=== PATIENT | female | born 1960 | race Caucasian/White ===

== ENCOUNTER 2017-10-02 08:46 | Inpatient (IN) ==
[2017-10-02] MEDS ORDERED: Piperacil/Tazo 3.375 GM Premix 50 ML IV.SIG ONE (08:56)
[2017-10-02] MEDS ORDERED: Lidocaine 1%/Epinephrine 1:100,000 Inj 20 ML Vial INFILTRATN ONE (08:56)
[2017-10-02] MEDS ORDERED: Vancomycin Inj 1 GM/200 ML PIGGYBACK IV.SIG ONE (08:56)
[2017-10-02] MEDS ORDERED: Vancomycin Inj 1,000 MG in Sodium Chlor 0.9% Inj 250 ML IV.SIG ONE ×2 (09:15→10:15)
[2017-10-02 09:35] LABS: Hemoglobin 11.7 gm/dL (11.6-15.3); Mean Corpuscular HGB Conc 33.4 % (32.0-36.0); Mean Corpuscular Hemoglobin 29.2 pg (27.0-34.0); Mean Corpuscular Volume 87.6 fL (80.0-100.0); Mean Platelet Volume 7.5 fL (7.0-11.0); Platelet Count 367 th/mm3 (150-450); White Blood Count 8.7 th/mm3 (4.0-11.0)
[2017-10-02 09:51] LABS: Calcium 8.5 mg/dL (8.5-10.1); Carbon Dioxide 21.9 meq/L (21.0-32.0)
[2017-10-02] MEDS ORDERED: Lidocaine 1%/Epinephrine 1:100,000 Inj 20 ML Vial ONE (09:51)
[2017-10-02 10:27] LABS: Eosinophils 1 % (0-4); Lymphocytes 8 % (9-44); Monocytes 5 % (0-8); Platelet Estimate Normal (Normal); Platelet Morphology Normal (Normal); Toxic Granulation 1+
[2017-10-02 10:28] LABS: Toxic Vacuolation Present
[2017-10-02] MEDS ORDERED: Acetaminophen 325 MG Tablet PO PRN (11:00)
[2017-10-02] MEDS ORDERED: Vancomycin Consult Pharmacy OTHER ONE (11:09)
--- NOTE | 2017-10-02 11:22 | P.HP ---
<Irais Pollard W - Last Filed: 10/02/17 14:09> History of Present Illness Primary Care Physician: Shazia Elkins MD Chief Complaint: Draining wound left arm History of Present Illness: This is a 57-year-old female patient with a past medical history which includes anxiety, bipolar, fibromyalgia, hyperlipidemia, lupus, obesity and overactive bladder. Patient presents to the emergency department for a draining abscess on her arm. Patient reports that she first noticed a blister on the medial aspect of her upper left arm yesterday during the day then last night the area started draining and saturated her clothes. Patient denies pain to the area. Patient also reports that she removed a hot casserole from her oven about 1 week ago causing burning to bilateral fingers tips. Patient denies fevers, chills, N/V/D/C, SOB or chest pain. Emergency department today bedside I&D and started patient on vancomycin and Zosyn. Cultures obtained and pending. 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 - Medical History Medical History: Medical History (Last Updated 10/02/17 @ 08:57 by Michelle Pino) Bipolar depression History of shingles Hyperlipidemia Lupus - Surgical History Surgical History: Surgical History (Last Updated 10/02/17 @ 08:57 by Michelle Pino) Hx of cholecystectomy Hx of tonsillectomy - Tobacco History Smoking Status: Former smoker - Alcohol History How Often Do You Have a Drink Containing Alcohol: Never - Substance Use History Substance History: No History of Abuse - Travel History Recent Travel in the [place] Within the Last 8 Weeks: No Recent Travel Out of the Country Within the Last 8 Weeks: No - Immunization History Tetanus Immunization: Unsure Hx Influenza Vaccine This Season: No Medications and Allergies Allergies Allergy/AdvReac Type Severity Reaction Status Date / Time hydrocodone Allergy Severe Hives Verified 10/02/17 08:59 latex Allergy Severe Hives Verified 10/02/17 09:13 Home Medications Medication Instructions Recorded Confirmed Type Lidoderm 700 mg TRANSDERMAL DAILY PRN 10/02/17 10/02/17 History alprazolam [Xanax] 0.5 mg PO BID PRN 10/02/17 10/02/17 History aripiprazole 20 mg PO DAILY 10/02/17 10/02/17 History aspirin 81 mg PO DAILY 10/02/17 10/02/17 History cholecalciferol (vitamin D3) unit PO DAILY 10/02/17 History [Vitamin D3] cyclobenzaprine 10 mg PO BID PRN 10/02/17 10/02/17 History diclofenac sodium 75 mg PO DAILY 10/02/17 10/02/17 History fenofibrate 145 mg PO DAILY 10/02/17 10/02/17 History furosemide 20 mg PO BID 10/02/17 10/02/17 History gabapentin 100 mg PO TID 10/02/17 10/02/17 History hydroxychloroquine 200 mg PO DAILY 10/02/17 10/02/17 History mirtazapine 30 mg PO DAILY 10/02/17 10/02/17 History rosuvastatin 10 mg PO DAILY 10/02/17 10/02/17 History temazepam 30 mg PO HS 10/02/17 10/02/17 History tramadol 50 mg PO BID 10/02/17 10/02/17 History valacyclovir [Valtrex] 1,000 mg PO TID 10/02/17 10/02/17 History sertraline [Zoloft] 100 mg PO DAILY 10/05/17 10/05/17 History Active Medications: Active Medications Acetaminophen (Tylenol) 650 mg PO Q4H PRN PRN Reason: Temp > 100.4 Al Hydroxide/Mg Hydroxide (Milk Of Magncady Liq) 30 ml PO Q12H PRN PRN Reason: Mild Constipation Vancomycin HCl 1,000 mg/ (Sodium Chloride) 250 mls @ 200 mls/hr IV.SIG ONCE ONE Stop: 10/02/17 11:29 Last Admin: 10/02/17 10:27 Dose: 200 mls/hr Ondansetron HCl (Zofran Inj) 4 mg IV.PUSH Q6H PRN PRN Reason: NAUSEA OR VOMITING Senna/Docusate Sodium (Nano-Colace) 1 tab PO BID SARA Temazepam (Restoril) 15 mg PO HS PRN PRN Reason: INSOMNIA Exam Vital signs: Vital Signs 10/02/17 08:54 10/02/17 08:58 Temperature 98.7 F Pulse Rate 104 H 97 H Respiratory Rate 18 20 Blood Pressure 133/79 144/70 H Pulse Oximetry 95 96 Intake & Output 10/01/17 10/02/17 10/02/17 18:59 06:59 18:59 Intake Total 50 / 50 Balance 50 / 50 Weight 108.862 kg Intake: IV 50 / 50 Zosyn 3.375 GM Premix 50 ML @ 50 / 50 100 mls/hr IV.SIG ONCE ONE Rx#: [id number] Narrative: GENERAL: This is a well-nourished, well-developed patient, in no apparent distress. SKIN: healing crusted areas bilateral finger tips, medial aspect left upper arm open drain wound with packing present, erythema and edema also noted to left upper arm CARDIOVASCULAR: Regular rate and rhythm RESPIRATORY: Clear to auscultation. Breath sounds equal bilaterally. GASTROINTESTINAL: Abdomen soft, non-tender, nondistended. Normal active bowel sounds MUSCULOSKELETAL: Extremities without clubbing, cyanosis, or edema. NEURO: Alert & Oriented x4 to person, place, time, situation. Moves all ext x4 Results - Labs CBC & Chem 7: 10/02/17 09:10 10/02/17 09:10 Labs: Laboratory Results - last 24 hr 10/02/17 10/02/17 09:10 09:10 WBC 8.7 RBC 4.00 Hgb 11.7 Hct 35.0 MCV 87.6 MCH 29.2 MCHC 33.4 RDW 14.0 Plt Count 367 MPV 7.5 Prelim Diff (Auto) Manual diff required WBC Differential Manual diff final Seg Neuts % (Manual) 78 H Band Neuts % (Manual) 8 H Lymphocytes % (Manual) 8 L Monocytes % (Manual) 5 Eosinophils % (Manual) 1 Abs Neuts (Manual) 7.5 Differential Comment . Toxic Granulation 1+ H Toxic Vacuolation Present H Platelet Estimate Normal Platelet Morphology Normal Sodium 129 L Potassium 3.0 L Chloride 91 L Carbon Dioxide 21.9 Anion Gap 16 H BUN 14 Creatinine 0.84 Estimated GFR 70 L Random Glucose 112 H Calcium 8.5 Caprini VTE Risk Assessment Caprini VTE Risk Assessment: No/Low Risk (score <= 1) Caprini Risk Assessment Model: Point Value = 1 Point Value = 2 Point Value = 3 Point Value = 5 Age 41-60 Minor surgery BMI > 25 kg/m2 Swollen legs Varicose veins or History of unexplained or recurrent spontaneous Oral contraceptives or hormone replacement Sepsis (< 1 month) Serious lung disease, including pneumonia (< 1 month) Abnormal pulmonary function Acute myocardial infarction Congestive heart failure (< 1 month) History of inflammatory bowel disease Medical patient at bed rest Age 61-74 Arthroscopic surgery Major open surgery (> 45 min) Laparoscopic surgery (> 45 min) Malignancy Confined to bed (> 72 hours) Immobilizing plaster cast Central venous access Age >= 75 History of VTE Family history of VTE Factor V Leiden Prothrombin [id number] Lupus anticoagulant Anticardiolipin antibodies Elevated serum homocysteine Heparin-induced thrombocytopenia Other congenital or acquired thrombophilia Stroke (< 1 month) Elective arthroplasty Hip, pelvis, or leg fracture Acute spinal cord injury (< 1 month) Prophylaxis Regimen: Total Risk Factor Score Risk Level Prophylaxis Regimen 0-1 Low Early ambulation 2 Moderate Order ONE of the following: *Sequential Compression Device (SCD) *Heparin 5000 units SQ BID 3-4 Higher Order ONE of the following medications: *Heparin 5000 units SQ TID *Enoxaparin/Lovenox 40 mg SQ daily (WT < 150 kg, CrCl > 30 mL/min) *Enoxaparin/Lovenox 30 mg SQ daily (WT < 150 kg, CrCl > 10-29 mL/min) *Enoxaparin/Lovenox 30 mg SQ BID (WT < 150 kg, CrCl > 30 mL/min) AND/OR *Sequential Compression Device (SCD) 5 or more Highest Order ONE of the following medications: *Heparin 5000 units SQ TID (Preferred with Epidurals) *Enoxaparin/Lovenox 40 mg SQ daily (WT < 150 kg, CrCl > 30 mL/min) *Enoxaparin/Lovenox 30 mg SQ daily (WT < 150 kg, CrCl > 10-29 mL/min) *Enoxaparin/Lovenox 30 mg SQ BID (WT < 150 kg, CrCl > 30 mL/min) AND *Sequential Compression Device (SCD) Assessment and Plan - Assessment (1) Abscess of left arm Code(s): L02.414 - Cutaneous abscess of left upper limb Status: Acute Plan: This is a 57-year-old female patient with a past medical history which includes anxiety, bipolar, fibromyalgia, hyperlipidemia, lupus, obesity and overactive bladder. Patient presents to the emergency department for a draining abscess on her arm. Patient reports that she first noticed a blister on the medial aspect of her upper left arm yesterday during the day then last night the area started draining and saturated her clothes. Patient denies pain to the area. Patient also reports that she removed a hot casserole from her oven about 1 week ago causing burning to bilateral fingers tips. Patient denies fevers, chills, N/V/D/C, SOB or chest pain. Emergency department today bedside I&D and started patient on vancomycin and Zosyn. Cultures obtained and pending. Abscess left upper arm Patient presents to the emergency department for a draining abscess on her arm. Patient reports that she first noticed a blister on the medial aspect of her upper left arm yesterday during the day then last night the area started draining and saturated her clothes. Emergency department today bedside I&D and started patient on vancomycin and Zosyn Continue VAnco with pharmacy to dose and continue Zosyn Blood Cultures obtained and pending Wound culture obtained and pending Consult to General surgery, Dr. Betts discussed the case with Michael Hightower consult to wound care Healing manzo bilateral fingers she removed a hot casserole from her oven about 1 week ago causing burning to bilateral fingers tips. Silvadene cream BID consult to wound care Hyponatremia on admission patient's Na was 129 likely related to poor PO intake IVF recheck in AM Hypokalemia potassium on admission 3.0 mag 1.8 replace K recheck in AM Anxiety Bipolar Continue patient's home alprazolam as needed, aripiprazole and mirtazapine Fibromyalgia Lupus continue patient's home gabapentin Hyperlipidemia Continue patient's home fenofibrate and rosuvastatin DVT prophylaxis with SCDs - Plan This is a 57-year-old female patient with a past medical history which includes anxiety, bipolar, fibromyalgia, hyperlipidemia, lupus, obesity and overactive bladder. Patient presents to the emergency department for a draining abscess on her arm. Abscess left arm Emergency department today bedside I&D and started patient on vancomycin and Zosyn Blood cultures and wound culture obtained and pending We will continue vancomycin with pharmacy to dose as well as Zosyn Consult placed to general surgery Hyponatremia sodium on admission 129 Patient likely not eating and drinking well We will start IV fluids normal saline with 20 MEQ KCl at 84 cc an hour Recheck BMP in a.m. Hypokalemia Patient's potassium on admission three-point Replace with 20 MEQ of KCl PO IV fluids with KCl Recheck BMP in a.m. Overactive bladder Continue patients on oxybutynin 5 mg 1 tablet p.o. twice a day May need to hold if hyponatremia persists Bipolar Anxiety Continue patient's home Abilify 20 mg p.o. daily and alprazolam 0.5 mg 1 tablet p.o. twice a day Hyperlipidemia Continue patient's home fenofibrate and Rosuvastatin Fibromyalgia Continue patient's home gabapentin 100 mg 1 tablet p.o. 3 times a day DVT prophylaxis with SCDs <Giovany Betts - Last Filed: 10/06/17 12:42> History of Present Illness Primary Care Physician: Shazia Elkins MD - Diagnosis (1) Abscess of left arm Inpatient Certification: I certify that the inpatient services were ordered in accordance with Medicare regulations governing the order. This includes certification that hospital inpatient services are reasonable and necessary and in the case of services not specified as inpatient-only under 42 CFR 419.22(n), that they are appropriately provided as inpatient services in accordance to with the 2-midnight benchmark under 43 CFR 412.3(e) [facility] - Medical History Medical History: Medical History (Last Updated 10/02/17 @ 08:57 by Michelle Pino) Bipolar depression History of shingles Hyperlipidemia Lupus - Surgical History Surgical History: Surgical History (Last Updated 10/02/17 @ 08:57 by Michelle Pino) Hx of cholecystectomy Hx of tonsillectomy Medications and Allergies Active Medications: Active Medications Acetaminophen (Tylenol) 650 mg PO Q4H PRN PRN Reason: Temp > 100.4 Al Hydroxide/Mg Hydroxide (Milk Of Magnesia Liq) 30 ml PO Q12H PRN PRN Reason: Mild Constipation Alprazolam (Xanax) 0.5 mg PO BID PRN PRN Reason: Anxiety Aripiprazole (Abilify) 20 mg PO DAILY [facility] Last Admin: 10/06/17 08:43 Dose: 20 mg Atorvastatin Calcium (Lipitor) 20 mg PO DAILY [facility] Last Admin: 10/06/17 08:44 Dose: 20 mg Cyclobenzaprine HCl (Flexeril) 10 mg PO BID PRN PRN Reason: pain Last Admin: 10/03/17 12:49 Dose: 10 mg Fenofibrate (Tricor) 145 mg PO DAILY [facility] Last Admin: 10/06/17 08:42 Dose: 145 mg Gabapentin (Neurontin) 100 mg PO TID [facility] Last Admin: 10/06/17 08:43 Dose: 100 mg Hydroxychloroquine Sulfate (Plaquenil) 200 mg PO DAILY [facility] Last Admin: 10/06/17 08:44 Dose: 200 mg Clindamycin/Sodium Chloride (Cleocin 900 Mg/Ns Premix) 900 mg in 50 mls @ 100 mls/hr IV.SIG Q8H [facility] Last Infusion: 10/06/17 05:37 Dose: Infused Mirtazapine (Remeron) 15 mg PO DAILY [facility] Last Admin: 10/06/17 08:43 Dose: 15 mg Morphine Sulfate (Morphine Inj) 4 mg IV.PUSH DAILY PRN PRN Reason: dressing changes Ondansetron HCl (Zofran Inj) 4 mg IV.PUSH Q6H PRN PRN Reason: NAUSEA OR VOMITING Sertraline HCl (Zoloft) 100 mg PO DAILY [facility] Last Admin: 10/06/17 08:43 Dose: 100 mg Silver Sulfadiazine (Silvadene 1% Cream (50 Gm)) 1 applicatio TOPICAL BID [facility] Last Admin: 10/06/17 08:44 Dose: 1 applicatio Sodium Chloride (Ns Flush) 10 ml IV.FLUSH UNSCH PRN PRN Reason: PER SHIFT Temazepam (Restoril) 30 mg PO HS [facility] Last Admin: 10/05/17 20:28 Dose: 30 mg Tramadol HCl (Ultram) 50 mg PO Q6H PRN PRN Reason: pain 1-10. Exam Vital signs: Vital Signs 10/05/17 15:37 10/05/17 16:30 10/05/17 17:05 Temperature 98.2 F Pulse Rate 88 85 Respiratory Rate 18 20 3 L Blood Pressure 129/85 131/87 Pulse Oximetry 98 96 10/05/17 18:00 10/05/17 20:00 10/06/17 00:00 Temperature 97.6 F 97.8 F 97.7 F Pulse Rate 81 95 H 97 H Respiratory Rate 17 18 18 Blood Pressure 144/71 H 150/75 H 132/68 Pulse Oximetry 95 98 98 10/06/17 04:00 10/06/17 08:00 Temperature 97.7 F 97.4 F L Pulse Rate 96 H 89 Respiratory Rate 18 18 Blood Pressure 136/74 142/85 H Pulse Oximetry 97 97 Intake & Output 10/05/17 10/06/17 10/06/17 18:59 06:59 18:59 Intake Total 1525 / 1525 580 / 580 Balance 1525 / 1525 580 / 580 Weight 106.8 kg 108.5 kg Intake: IV 565 / 565 100 / 100 Cleocin 900 mg/NS Premix 900 mg 50 / 50 100 / 100 In 50 ml @ 100 mls/hr IV.SIG Q8H [facility] Rx#:[id number] Oral 960 / 960 480 / 480 Other: # Voids 5 1 Date of Last Bowel Movement 10/05/17 10/05/17 # Bowel Movements 1 0 Results - Labs CBC & Chem 7: 10/05/17 05:45 10/05/17 05:45 Labs: Laboratory Results - last 24 hr 10/06/17 06:32 PT 10.9 INR 1.1 - Imaging Impressions Abscess Drainage Ultrasound 10/05/17 15:48 CONCLUSION: 1. Uncomplicated abscess drainage. Caprini VTE Risk Assessment Caprini Risk Assessment Model: Point Value = 1 Point Value = 2 Point Value = 3 Point Value = 5 Age 41-60 Minor surgery BMI > 25 kg/m2 Swollen legs Varicose veins or History of unexplained or recurrent spontaneous Oral contraceptives or hormone replacement Sepsis (< 1 month) Serious lung disease, including pneumonia (< 1 month) Abnormal pulmonary function Acute myocardial infarction Congestive heart failure (< 1 month) History of inflammatory bowel disease Medical patient at bed rest Age 61-74 Arthroscopic surgery Major open surgery (> 45 min) Laparoscopic surgery (> 45 min) Malignancy Confined to bed (> 72 hours) Immobilizing plaster cast Central venous access Age >= 75 History of VTE Family history of VTE Factor V Leiden Prothrombin [id number] Lupus anticoagulant Anticardiolipin antibodies Elevated serum homocysteine Heparin-induced thrombocytopenia Other congenital or acquired thrombophilia Stroke (< 1 month) Elective arthroplasty Hip, pelvis, or leg fracture Acute spinal cord injury (< 1 month) Prophylaxis Regimen: Total Risk Factor Score Risk Level Prophylaxis Regimen 0-1 Low Early ambulation 2 Moderate Order ONE of the following: *Sequential Compression Device (SCD) *Heparin 5000 units SQ BID 3-4 Higher Order ONE of the following medications: *Heparin 5000 units SQ TID *Enoxaparin/Lovenox 40 mg SQ daily (WT < 150 kg, CrCl > 30 mL/min) *Enoxaparin/Lovenox 30 mg SQ daily (WT < 150 kg, CrCl > 10-29 mL/min) *Enoxaparin/Lovenox 30 mg SQ BID (WT < 150 kg, CrCl > 30 mL/min) AND/OR *Sequential Compression Device (SCD) 5 or more Highest Order ONE of the following medications: *Heparin 5000 units SQ TID (Preferred with Epidurals) *Enoxaparin/Lovenox 40 mg SQ daily (WT < 150 kg, CrCl > 30 mL/min) *Enoxaparin/Lovenox 30 mg SQ daily (WT < 150 kg, CrCl > 10-29 mL/min) *Enoxaparin/Lovenox 30 mg SQ BID (WT < 150 kg, CrCl > 30 mL/min) AND *Sequential Compression Device (SCD) Assessment and Plan - Assessment (1) Abscess of left arm Code(s): L02.414 - Cutaneous abscess of left upper limb Status: Acute - Attending Attestation Patient examined. Assessment and plan formulated with Irais BEEBE I agree with the above.
--- NOTE | 2017-10-02 11:57 | XR ---
EXAM DATE: 10/02/2017 11:51 AM EDT AGE/SEX: 57 years / Female INDICATIONS: Cough. Patient complains of no energy, fatigue. Patient states she has shingles. CLINICAL DATA: This is the patient's initial encounter. Patient reports that signs and symptoms have been present for 1 day and indicates a pain score of 6/10. MEDICAL/SURGICAL HISTORY: Lupus. None. COMPARISON: No prior exams available for comparison. FINDINGS: Mild basilar atelectasis. Mild elevation right hemidiaphragm. Heart size within normal limits. No pne umothorax. CONCLUSION: Mild basilar atelectasis. No effusion or pneumothorax. Electronically signed by: Roger Benavides MD 10/02/2017 11:56 AM EDT
[2017-10-02] MEDS ORDERED: ALPRAZolam 0.5 MG Tablet PO PRN (13:17)
[2017-10-02] MEDS: Piperacil/Tazo 3.375 GM Premix 50 ML IV.SIG SCH ×2 (15:15→23:12)
--- NOTE | 2017-10-02 15:47 | ED ---
HPI General Chief complaint: Wound/Laceration Stated complaint: Medical Time Seen by Provider: 10/02/17 08:48 History of Present Illness HPI narrative: This is a 57-year-old female with a history of lupus, bipolar disorder, presents today with complaints of left upper arm redness and draining pus. Patient states that it started a few days ago. She states that she has been exposed to a nephew who has MRSA. She denies any fevers, chills. She reports increasing pain and redness and the newly draining lesion in her left upper inner arm. There are no other complaints at time of my examination. Onset (ago): day(s) Location: left and upper extremity Radiation: non-radiation Severity: moderate Severity scale (1-10): 8 Quality: sharp and constant Pain Consistency: constant Relieving factors: none Exacerbating factors: none Treatments prior to arrival: none Related Data Home Medications Medication Instructions Recorded Confirmed Lidoderm 700 mg TRANSDERMAL DAILY PRN 10/02/17 10/02/17 alprazolam [Xanax] 0.5 mg PO BID PRN 10/02/17 10/02/17 aripiprazole 20 mg PO DAILY 10/02/17 10/02/17 aspirin 81 mg PO DAILY 10/02/17 10/02/17 cholecalciferol (vitamin D3) unit PO DAILY 10/02/17 [Vitamin D3] cyclobenzaprine 10 mg PO BID PRN 10/02/17 10/02/17 diclofenac sodium 75 mg PO DAILY 10/02/17 10/02/17 fenofibrate 145 mg PO DAILY 10/02/17 10/02/17 furosemide 20 mg PO BID 10/02/17 10/02/17 gabapentin 100 mg PO TID 10/02/17 10/02/17 hydroxychloroquine 200 mg PO DAILY 10/02/17 10/02/17 mirtazapine 30 mg PO DAILY 10/02/17 10/02/17 rosuvastatin 10 mg PO DAILY 10/02/17 10/02/17 temazepam 30 mg PO HS 10/02/17 10/02/17 tramadol 50 mg PO BID 10/02/17 10/02/17 valacyclovir [Valtrex] 1,000 mg PO TID 10/02/17 10/02/17 Allergies Allergy/AdvReac Type Severity Reaction Status Date / Time hydrocodone Allergy Severe Hives Verified 10/02/17 08:59 latex Allergy Severe Hives Verified 10/02/17 09:13 Review of Systems Constitutional Denies chills and Denies fever(s) Eyes Reports system reviewed and no additional complaints, except as docu ENT Reports system reviewed and no additional complaints, except as docu Cardiovascular Reports system reviewed and no additional complaints, except as docu, Denies chest pain and Denies dyspnea Respiratory Denies cough and Denies dyspnea Gastrointestinal Denies nausea and Denies vomiting Genitourinary Reports system reviewed and no additional complaints, except as docu Musculoskeletal Denies back pain and Denies muscle weakness Integumentary/Breasts Reports lesions (Draining lesion under left arm) and Reports erythema (Left upper inner arm) Neurologic Reports system reviewed and no additional complaints, except as docu Endocrine Denies polydipsia and Denies polyuria PMFSH Social History Social History Substance History: No History of Abuse Second Hand Smoke Exposure: No Smoking Status: Former smoker How Often Do You Have a Drink Containing Alcohol: Never Recent Travel in [facility] within the Last 8 Weeks: No Recent Out of Country Travel within the Last 8 Weeks: No Immunization History Tetanus Immunization: Unsure Hx Influenza Vaccine This Season: No Exam Narrative Exam Narrative: GENERAL: Well-developed well-nourished female in no acute respiratory distress. SKIN: Focused skin assessment warm/dry. There is a draining abscess under her left inner arm. HEAD: Atraumatic. Normocephalic. EYES: No scleral icterus. No injection or drainage. ENT: No nasal bleeding or discharge. Mucous membranes pink and moist. NECK: Trachea midline. Supple. CARDIOVASCULAR: Sinus tachycardia rate of 101. No murmur appreciated. RESPIRATORY: No accessory muscle use. Clear to auscultation. Breath sounds equal bilaterally. GASTROINTESTINAL: Abdomen soft, non-tender, nondistended. Hepatic and splenic margins not palpable. MUSCULOSKELETAL: No obvious deformities. No clubbing. No cyanosis. No edema. NEUROLOGICAL: Awake and alert. No obvious cranial nerve deficits. Motor grossly within normal limits. Normal speech. PSYCHIATRIC: Appropriate mood and affect; insight and judgment normal. Procedures Abscess I/D Site: upper extremity Side (if applicable): left Sedation/analgesia: none Anesthetic used: lidocaine 1% Technique: incised with #11 blade Amount of fluid expressed (mL): 3 Irrigation: Yes Packing used?: iodoform Complications: pain Course Initial Documented Vital Signs Temperature 98.7 F 10/02/17 08:54 Pulse Rate 104 H 10/02/17 08:54 Respiratory Rate 18 10/02/17 08:54 Blood Pressure 133/79 10/02/17 08:54 Pulse Oximetry 95 10/02/17 08:54 Last Documented Vital Signs Temperature 98.7 F 10/02/17 08:54 Pulse Rate 67 10/02/17 15:00 Respiratory Rate 16 10/02/17 15:00 Blood Pressure 131/76 10/02/17 15:00 Pulse Oximetry 95 10/02/17 15:00 Medical Decision Making MDM Narrative Medical decision making narrative: 57-year-old female with a history of lupus, presents here today with complaints of left axillary cellulitis and drainage. Patient denies any fevers, chills. She has a large indurated area with woody edema. She has been started on Zosyn and vancomycin. Case was discussed with the [facility], who agrees with the above admission. Under direct supervision of this physician, Noel Vizcaino, medical student 4 perform the incision and drainage. The patient tolerated the procedure well and there were no complications. Patient is also noted to have hyponatremia as well as hypokalemia. She will be a full admit. Medical Screen Exam Complete: Yes Emergency Medical Condition: Yes Lab Data Result diagrams: 10/02/17 09:10 10/02/17 09:10 Lab Results 10/02/17 10/02/17 10/02/17 Range/Units 09:10 09:10 09:10 WBC 8.7 (4.0-11.0) th/mm3 RBC 4.00 (4.00-5.30) mil/mm3 Hgb 11.7 (11.6-15.3) gm/dL Hct 35.0 (35.0-46.0) % MCV 87.6 (80.0-100.0) fL MCH 29.2 (27.0-34.0) pg MCHC 33.4 (32.0-36.0) % RDW 14.0 (11.6-17.2) % Plt Count 367 (150-450) th/mm3 MPV 7.5 (7.0-11.0) fL Prelim Diff (Auto) Manual diff required WBC Differential Manual diff final Seg Neuts % (Manual) 78 H (16-70) % Band Neuts % (Manual) 8 H (0-6) % Lymphocytes % (Manual) 8 L (9-44) % Monocytes % (Manual) 5 (0-8) % Eosinophils % (Manual) 1 (0-4) % Abs Neuts (Manual) 7.5 (1.8-7.7) th/mm3 Differential Comment . Toxic Granulation 1+ H (None) Toxic Vacuolation Present H (None) Platelet Estimate Normal (Normal) Platelet Morphology Normal (Normal) Sodium 129 L (136-145) meq/L Potassium 3.0 L (3.5-5.1) meq/L Chloride 91 L (98-107) meq/L Carbon Dioxide 21.9 (21.0-32.0) meq/L Anion Gap 16 H (5-15) meq/L BUN 14 (7-18) mg/dL Creatinine 0.84 (0.50-1.00) mg/dL Estimated GFR 70 L (>89) mL/min Random Glucose 112 H (74-106) mg/dL Calcium 8.5 (8.5-10.1) mg/dL Magnesium 1.8 (1.5-2.5) mg/dL Imaging Data Radiologist's impression: Chest X-Ray 10/02/17 00:00 CONCLUSION: Mild basilar atelectasis. No effusion or pneumothorax. Discharge Plan Discharge Disposition Patient Disposition: 30 Still Patient Discharge Details Diagnosis: Abscess of left arm, Hypokalemia, Hyponatremia, Lupus Physicians Team ED Provider: Enrique Romo Primary Care Provider: Shazia Elkins Attending Provider: Giovany Betts Other Providers: Altaf Rodriguez Discharge Interventions Interventions: ED Discharge Assessment Last Done: 10/02/17 17:00 Vital Signs Last Done: 10/02/17 12:58 Status ED Status: Left Department Discharge Information Discharge Date/Time: 10/02/17 17:04
[2017-10-02] MEDS: Gabapentin 100 MG Capsule PO SCH (18:39)
[2017-10-02] MEDS ORDERED: Temazepam 15 MG Capsule PO PRN (21:00)
[2017-10-02] MEDS: Temazepam 15 MG Capsule PO SCH (21:41)
[2017-10-02] MEDS: Senna/Docusate Sodium 8.6/50 MG Tablet PO SCH ×2 (21:41→21:42)
[2017-10-02] MEDS: Furosemide 20 MG Tablet PO SCH (21:41)
[2017-10-03] MEDS: Piperacil/Tazo 3.375 GM Premix 50 ML IV.SIG SCH ×3 (02:10→15:28)
[2017-10-03] MEDS: Gabapentin 100 MG Capsule PO SCH ×3 (09:21→17:51)
[2017-10-03] MEDS: Hydroxychloroquine 200 MG Tablet PO SCH (09:22)
[2017-10-03] MEDS: Fenofibrate 145 MG Tablet PO SCH (09:22)
[2017-10-03] MEDS: Mirtazapine 15 MG Tablet PO SCH (09:22)
[2017-10-03] MEDS: Furosemide 20 MG Tablet PO SCH ×2 (09:25→21:50)
[2017-10-03 09:35] LABS: Baso % (Auto) 0.5 % (0.0-2.0); Eos # (Auto) 0.1 th/mm3 (0.0-0.4); Hematocrit 30.3 % (35.0-46.0); Hemoglobin 11.3 gm/dL (11.6-15.3); Lymph # (Auto) 1.2 th/mm3 (1.0-4.8); Lymph % (Auto) 18.7 % (9.0-44.0); Mean Corpuscular Volume 86.1 fL (80.0-100.0); Mean Platelet Volume 7.3 fL (7.0-11.0); Mono # (Auto) 0.3 th/mm3 (0.0-0.9); Mono % (Auto) 4.7 % (0.0-8.0); Neut % (Auto) 75.1 % (16.0-70.0); Platelet Count 353 th/mm3 (150-450); Red Blood Count 3.52 mil/mm3 (4.00-5.30); Red Cell Distribution Width 14.1 % (11.6-17.2); White Blood Count 6.7 th/mm3 (4.0-11.0)
[2017-10-03 09:40] LABS: Mean Corpuscular HGB Conc 37.2 % (32.0-36.0)
[2017-10-03 09:52] LABS: Carbon Dioxide 27.4 meq/L (21.0-32.0)
[2017-10-03 10:39] LABS: Acanthocytes Occ; Spherocytes Occ
[2017-10-03] MEDS: Senna/Docusate Sodium 8.6/50 MG Tablet PO SCH ×2 (11:56→21:51)
--- NOTE | 2017-10-03 13:23 | P.PNGS ---
Subjective Patient reports: no new complaints, still having pain, pain is less (She states that her arm is still very sore. It has continued to drain and relatively large amounts.) Physical Exam Vital signs: Vital Signs 10/02/17 15:00 10/02/17 20:00 10/03/17 00:00 Temperature 97.5 F L 97.4 F L Pulse Rate 67 89 90 Respiratory Rate 16 20 20 Blood Pressure 131/76 127/64 112/59 L Pulse Oximetry 95 97 97 10/03/17 04:00 10/03/17 09:00 Temperature 98.3 F 97.4 F L Pulse Rate 87 80 Respiratory Rate 20 18 Blood Pressure 106/55 L 115/76 Pulse Oximetry 95 98 Intake & Output 10/02/17 10/03/17 10/03/17 18:59 06:59 18:59 Intake Total 850 / 850 1580 / 1580 50 / 50 Balance 850 / 850 1580 / 1580 50 / 50 Weight 108.862 kg 108.7 kg Intake: IV 350 / 350 1100 / 1100 50 / 50 NS + KCl 20 mEq Inj 1,000 ML @ 1000 / 1000 84 mls/hr IV.CONT .[id number] [facility] Rx#:[id number] Zosyn 3.375 GM Premix 50 ML @ 100 / 100 100 / 100 50 / 50 100 mls/hr IV.SIG Q6H [facility] Rx#: [id number] Vancomycin Inj 1,000 MG In NS 250 / 250 Inj 250 ML @ 200 mls/hr IV.SIG ONCE ONE Rx#:[id number] Oral 500 / 500 480 / 480 Other: Post Void Residual 2 # Bowel Movements 1 - Detailed Skin Exam arm Type of lesion/wound: Present: abscess (The patient has a moderate amount of drainage on her dressing. There is resolving erythema which appears to be much smaller than it did yesterday. Packing is in place and is being cared for by the wound care team.) Assessment and Plan - Assessment (1) Abscess of left arm Code(s): L02.414 - Cutaneous abscess of left upper limb Status: Acute - Plan At this point the patient has had what appears to be a significant amount of drainage since the initial incision and drainage of the abscess yesterday in the emergency department. The erythema is resolving. So far the cultures are negative. At this point I do not believe further surgical intervention is necessary. The patient can probably be discharged by tomorrow or Thursday, with home health care to change the dressing. She can then be followed up in the wound care clinic in my office. I will see the patient as needed from here. Please call if necessary.
--- NOTE | 2017-10-03 14:35 | ECG ---
Date Performed: 10/02/2017 Time Performed: 11:13:11 PTAGE: 57 years EKG: Sinus rhythm NONSPECIFIC T-WAVE ABNORMALITY When compared to previous tracing, no significant change. BORDERLINE ECG PREVIOUS TRACING : 01/15/2006 19.26 DOCTOR: Porfirio Bernal Interpretating Date/Time 10/03/2017 14:33:48
--- NOTE | 2017-10-03 14:50 | P.CONPSY ---
Provisional Diagnosis Admission Date: October 02, 2017 14:01 [place] I.: Bipolar disorder in remission History of Present Illness Service: Psychiatry Consult date: 10/03/17 Requesting Physician: Giovany Betts Reason for Consult: Assessment Primary Care Provider: Shazia Elkins MD Chief Complaint: Draining wound left arm History of Present Illness: Patient is 57-year-old white female admitted to the hospital for treatment of her left upper arm abscess being treated by the surgical service and has been draining. Asked to see patient because she has a history of bipolar disorder. Patient seen today with nurse. She is alert oriented overweight white female she is calm cooperative and pleasant with me. Acknowledges being bipolar. States she is not a client at [facility] to does see RIANNA Lyons for her outpatient medication. She states she is compliant with all her outpatient medications. Patient's mood is stable I see no signs of any manifestation of bipolar mood disorder. Patient denies suicidality homicidality voices or visions. She lives by herself she is she has 2 pet cats. At this time I see no need for any adjustment with her psychotropic medications. He may continue them as ordered and she may follow-up outpatient [facility] for further mental health care. Is okay by psych for discharge when she is medically clear and stable thanks for consult will sign off at the present time Review of Systems All other systems reviewed negative except as stated in HPI PMFSH - History History Provided By: Patient - Medical History Medical History: Medical History (Last Reviewed 10/02/17 @ 17:45 by Joann Miller RN) Bipolar depression History of shingles Hyperlipidemia Lupus - Surgical History Surgical History: Surgical History (Last Reviewed 10/02/17 @ 17:45 by Joann Miller RN) Hx of cholecystectomy Hx of tonsillectomy - Tobacco History Second Hand Smoke Exposure: No Smoking Status: Former smoker - Alcohol History How Often Do You Have a Drink Containing Alcohol: Never - Substance Use History Substance History: No History of Abuse - Travel History Recent Travel in the [place] Within the Last 8 Weeks: No Recent Travel Out of the Country Within the Last 8 Weeks: No - Immunization History Tetanus Immunization: Unsure Hx Influenza Vaccine This Season: No Medications and Allergies Active Medications: Active Medications Acetaminophen (Tylenol) 650 mg PO Q4H PRN PRN Reason: Temp > 100.4 Al Hydroxide/Mg Hydroxide (Milk Of Magnesia Liq) 30 ml PO Q12H PRN PRN Reason: Mild Constipation Alprazolam (Xanax) 0.5 mg PO BID PRN PRN Reason: Anxiety Aripiprazole (Abilify) 20 mg PO DAILY [facility] Last Admin: 10/03/17 09:21 Dose: 20 mg Atorvastatin Calcium (Lipitor) 20 mg PO DAILY [facility] Last Admin: 10/03/17 09:22 Dose: 20 mg Cyclobenzaprine HCl (Flexeril) 10 mg PO BID PRN PRN Reason: pain Last Admin: 10/03/17 12:49 Dose: 10 mg Fenofibrate (Tricor) 145 mg PO DAILY [facility] Last Admin: 10/03/17 09:22 Dose: 145 mg Furosemide (Lasix) 20 mg PO BID [facility] Last Admin: 10/03/17 09:25 Dose: Not Given Gabapentin (Neurontin) 100 mg PO TID [facility] Last Admin: 10/03/17 12:45 Dose: 100 mg Hydroxychloroquine Sulfate (Plaquenil) 200 mg PO DAILY [facility] Last Admin: 10/03/17 09:22 Dose: 200 mg Piperacillin/Tazobactam/Dextrose (Zosyn 3.375 Gm Premix) 50 mls @ 100 mls/hr IV.SIG Q6H [facility] Last Infusion: 10/03/17 11:54 Dose: Infused Mirtazapine (Remeron) 15 mg PO DAILY [facility] Last Admin: 10/03/17 09:22 Dose: 15 mg Ondansetron HCl (Zofran Inj) 4 mg IV.PUSH Q6H PRN PRN Reason: NAUSEA OR VOMITING Senna/Docusate Sodium (Nano-Colace) 1 tab PO BID [facility] Last Admin: 10/03/17 11:56 Dose: Not Given Silver Sulfadiazine (Silvadene 1% Cream (50 Gm)) 1 applicatio TOPICAL BID [facility] Last Admin: 10/03/17 11:55 Dose: 1 applicatio Temazepam (Restoril) 30 mg PO HS [facility] Last Admin: 10/02/17 21:41 Dose: 30 mg Tramadol HCl (Ultram) 50 mg PO BID PRN PRN Reason: pain 1-5 Allergies Allergy/AdvReac Type Severity Reaction Status Date / Time hydrocodone Allergy Severe Hives Verified 10/02/17 08:59 latex Allergy Severe Hives Verified 10/02/17 09:13 Home Medications Medication Instructions Recorded Confirmed Type Lidoderm 700 mg TRANSDERMAL DAILY PRN 10/02/17 10/02/17 History alprazolam [Xanax] 0.5 mg PO BID PRN 10/02/17 10/02/17 History aripiprazole 20 mg PO DAILY 10/02/17 10/02/17 History aspirin 81 mg PO DAILY 10/02/17 10/02/17 History cholecalciferol (vitamin D3) unit PO DAILY 10/02/17 History [Vitamin D3] cyclobenzaprine 10 mg PO BID PRN 10/02/17 10/02/17 History diclofenac sodium 75 mg PO DAILY 10/02/17 10/02/17 History fenofibrate 145 mg PO DAILY 10/02/17 10/02/17 History furosemide 20 mg PO BID 10/02/17 10/02/17 History gabapentin 100 mg PO TID 10/02/17 10/02/17 History hydroxychloroquine 200 mg PO DAILY 10/02/17 10/02/17 History mirtazapine 30 mg PO DAILY 10/02/17 10/02/17 History rosuvastatin 10 mg PO DAILY 10/02/17 10/02/17 History temazepam 30 mg PO HS 10/02/17 10/02/17 History tramadol 50 mg PO BID 10/02/17 10/02/17 History valacyclovir [Valtrex] 1,000 mg PO TID 10/02/17 10/02/17 History Exam Vital signs: Vital Signs 10/02/17 15:00 10/02/17 20:00 10/03/17 00:00 Temperature 97.5 F L 97.4 F L Pulse Rate 67 89 90 Respiratory Rate 16 20 20 Blood Pressure 131/76 127/64 112/59 L Pulse Oximetry 95 97 97 10/03/17 04:00 10/03/17 09:00 10/03/17 12:00 Temperature 98.3 F 97.4 F L 97.1 F L Pulse Rate 87 80 87 Respiratory Rate 20 18 16 Blood Pressure 106/55 L 115/76 135/78 Pulse Oximetry 95 98 97 Intake & Output 10/02/17 10/03/17 10/03/17 18:59 06:59 18:59 Intake Total 850 / 850 1580 / 1580 50 / 50 Balance 850 / 850 1580 / 1580 50 / 50 Weight 108.862 kg 108.7 kg Intake: IV 350 / 350 1100 / 1100 50 / 50 NS + KCl 20 mEq Inj 1,000 ML @ 1000 / 1000 84 mls/hr IV.CONT .[id number] [facility] Rx#:[id number] Zosyn 3.375 GM Premix 50 ML @ 100 / 100 100 / 100 50 / 50 100 mls/hr IV.SIG Q6H [facility] Rx#: [id number] Vancomycin Inj 1,000 MG In NS 250 / 250 Inj 250 ML @ 200 mls/hr IV.SIG ONCE ONE Rx#:[id number] Oral 500 / 500 480 / 480 Other: Post Void Residual 2 # Bowel Movements 1 Narrative: Please see medsurg assessments Mental Status Examination Appearance: Appropriate Consciousness: Alert Orientation: x4 Motor Activity: Other (Patient laying in bed unable to ascertain) Speech: Unremarkable Language: Adequate Fund of Knowledge: Adequate Attention and Concentration: Adequate Memory: Unremarkable Mood: Other (Euthymic) Affect: Other (Good range and intensity) Thought Process & Associations: Intact, Logical Thought Content: Appropriate Delusion Type: None Suicidal Ideation: No Suicidal Plan: No Suicidal Intention: No Homicidal Ideation: No Homicidal Plan: No Homicidal Intention: No Insight: Adequate Judgment: Adequate Assessment and Plan - Assessment (1) Bipolar disorder in remission Code(s): F31.70 - Bipolar disorder, currently in remission, most recent episode unspecified Status: Acute - Plan Plan: Estimated LOS: [] days Patient bipolar disorder is under control and stable at the present time it is okay to continue medications as prescribed and follow-up outpatient [facility] act. Is okay by psych for discharge when medically clear and stable thanks for consult will sign off the present time Justification for Continued Inpatient Stay: See medsurg Discharge Planning: Per treatment team Request Healthcare Surrogate/Guardian Advocate?: No
[2017-10-03] MEDS ORDERED: Vancomycin Inj 1 GM/200 ML PIGGYBACK IV.SIG SCH (17:00)
[2017-10-03] MEDS ORDERED: Vancomycin Consult Pharmacy OTHER SCH (17:00)
--- NOTE | 2017-10-03 17:00 | P.PNIM ---
Subjective Interval history: Follow up: Abscess left upper arm Patient concerned and tearful regarding MRSA offer no other concerns/complaints Physical Exam Vital signs: Vital Signs 10/02/17 20:00 10/03/17 00:00 10/03/17 04:00 Temperature 97.5 F L 97.4 F L 98.3 F Pulse Rate 89 90 87 Respiratory Rate 20 20 20 Blood Pressure 127/64 112/59 L 106/55 L Pulse Oximetry 97 97 95 10/03/17 09:00 10/03/17 12:00 Temperature 97.4 F L 97.1 F L Pulse Rate 80 87 Respiratory Rate 18 16 Blood Pressure 115/76 135/78 Pulse Oximetry 98 97 Intake & Output 10/02/17 10/03/17 10/03/17 18:59 06:59 18:59 Intake Total 850 / 850 1580 / 1580 50 / 50 Balance 850 / 850 1580 / 1580 50 / 50 Weight 108.862 kg 108.7 kg Intake: IV 350 / 350 1100 / 1100 50 / 50 NS + KCl 20 mEq Inj 1,000 ML @ 1000 / 1000 84 mls/hr IV.CONT .[id number] [facility] Rx#:[id number] Zosyn 3.375 GM Premix 50 ML @ 100 / 100 100 / 100 50 / 50 100 mls/hr IV.SIG Q6H [facility] Rx#: [id number] Vancomycin Inj 1,000 MG In NS 250 / 250 Inj 250 ML @ 200 mls/hr IV.SIG ONCE ONE Rx#:[id number] Oral 500 / 500 480 / 480 Other: Post Void Residual 2 # Bowel Movements 1 Narrative: GENERAL: This is a well-nourished, well-developed patient, in no apparent distress. SKIN: healing crusted areas bilateral finger tips, medial aspect left upper arm open drain wound with copious thick purulent drainage, erythema and edema also noted to left upper arm tracking into left axilla CARDIOVASCULAR: Regular rate and rhythm RESPIRATORY: Clear to auscultation. Breath sounds equal bilaterally. GASTROINTESTINAL: Abdomen soft, non-tender, nondistended. Normal active bowel sounds MUSCULOSKELETAL: Extremities without clubbing, cyanosis, or edema. NEURO: Alert & Oriented x4 to person, place, time, situation. Moves all ext x4 Results - Labs CBC & Chem 7: 10/05/17 05:45 10/05/17 05:45 Laboratory Results - last 24 hr 10/03/17 10/03/17 08:35 08:35 WBC 6.7 RBC 3.52 L Hgb 11.3 L Hct 30.3 L MCV 86.1 MCH 32.0 MCHC 37.2 H RDW 14.1 Plt Count 353 MPV 7.3 Prelim Diff (Auto) Slide review pending Neut % (Auto) 75.1 H Lymph % (Auto) 18.7 [place] % (Auto) 4.7 Eos % (Auto) 1.0 Baso % (Auto) 0.5 Neut # (Auto) 5.0 Lymph # (Auto) 1.2 [place] # (Auto) 0.3 Eos # (Auto) 0.1 Baso # (Auto) 0.0 WBC Differential . Diff Scan Auto diff confirmed Differential Comment . Spherocytes Occ H Acanthocytes (Spur) Occ H Sodium 136 Potassium 3.0 L Chloride 98 Carbon Dioxide 27.4 Anion Gap 11 BUN 10 Creatinine 0.79 Estimated GFR 75 L Random Glucose 99 Calcium 8.0 L Microbiology 10/02/17 09:00 Abscess - Arm Gram Stain - Final 10/02/17 09:00 Abscess - Arm Wound Culture - Preliminary S. aureus MRSA 10/02/17 09:10 Blood - Peripheral Aerobic Blood Culture - Preliminary No growth in 1 day 10/02/17 09:10 Blood - Peripheral Anaerobic Blood Culture - Preliminary No growth in 1 day 10/02/17 09:05 Blood - Peripheral Aerobic Blood Culture - Preliminary No growth in 1 day 10/02/17 09:05 Blood - Peripheral Anaerobic Blood Culture - Preliminary No growth in 1 day Assessment and Plan - Assessment (1) Abscess of left arm Code(s): L02.414 - Cutaneous abscess of left upper limb Status: Acute Plan: This is a 57-year-old female patient with a past medical history which includes anxiety, bipolar, fibromyalgia, hyperlipidemia, lupus, obesity and overactive bladder. Patient presents to the emergency department for a draining abscess on her arm. Patient reports that she first noticed a blister on the medial aspect of her upper left arm yesterday during the day then last night the area started draining and saturated her clothes. Patient denies pain to the area. Patient also reports that she removed a hot casserole from her oven about 1 week ago causing burning to bilateral fingers tips. Patient denies fevers, chills, N/V/D/C, SOB or chest pain. Emergency department bedside I&D 10/03/17 Abscess left upper arm Patient presents to the emergency department for a draining abscess on her arm. Patient reports that she first noticed a blister on the medial aspect of her upper left arm yesterday during the day then last night the area started draining and saturated her clothes. (10/02) Emergency department bedside I&D and started patient on vancomycin and Zosyn Blood Cultures no growth x 1 day Wound culture revealed S aureus MRSA sensitivity pending DC Zosyn Continue Vancomycin with pharmacy to dose Consult to General surgery, Dr. Betts discussed the case with Michael Hightower (10/02 ) consult to wound care Healing manzo bilateral fingers she removed a hot casserole from her oven about 1 week ago causing burning to bilateral fingers tips. Silvadene cream BID consult to wound care Hyponatremia on admission patient's Na was 129 --> 136 (10/03) likely related to poor PO intake resolved after IVFs recheck in AM Hypokalemia potassium on admission 3.0 --> 3.0 mag 1.8 replace K recheck in AM Anxiety Bipolar Continue patient's home alprazolam as needed, aripiprazole and mirtazapine consult psych Fibromyalgia Lupus continue patient's home gabapentin Hyperlipidemia Continue patient's home fenofibrate and rosuvastatin DVT prophylaxis with SCDs - Attending Attestation Patient examined. Assessment and plan formulated with Irais Pollard PA-C. I agree with the above.
[2017-10-03] MEDS ORDERED: Vancomycin Inj 2,000 MG in Sodium Chlor 0.9% Inj 500 ML IV.SIG ONE (18:00)
[2017-10-03] MEDS: Temazepam 15 MG Capsule PO SCH (21:50)
[2017-10-04] MEDS: Vancomycin Inj 1,500 MG in Sodium Chlor 0.9% Inj 500 ML IV.SIG SCH ×2 (05:04→17:45)
[2017-10-04] MEDS: Hydroxychloroquine 200 MG Tablet PO SCH (10:44)
[2017-10-04] MEDS: Fenofibrate 145 MG Tablet PO SCH (10:44)
[2017-10-04] MEDS: Mirtazapine 15 MG Tablet PO SCH (10:44)
[2017-10-04] MEDS: Furosemide 20 MG Tablet PO SCH (10:44)
[2017-10-04] MEDS: Gabapentin 100 MG Capsule PO SCH ×3 (10:44→17:44)
[2017-10-04] MEDS: Senna/Docusate Sodium 8.6/50 MG Tablet PO SCH (10:48)
[2017-10-04 11:35] LABS: Calcium 7.7 mg/dL (8.5-10.1); Carbon Dioxide 27.5 meq/L (21.0-32.0); Potassium 3.7 meq/L (3.5-5.1)
--- NOTE | 2017-10-04 16:05 | P.PNGS ---
Subjective Patient reports: still having pain (She is still having pain; slightly less. Drainage persists.) Physical Exam Vital signs: Vital Signs 10/03/17 20:00 10/04/17 00:00 10/04/17 04:00 Temperature 97.3 F L 97.9 F 97.4 F L Pulse Rate 86 83 90 Respiratory Rate 19 18 18 Blood Pressure 122/66 109/65 112/70 Pulse Oximetry 97 98 98 10/04/17 08:00 10/04/17 12:00 Temperature 97.2 F L 97.1 F L Pulse Rate 83 86 Respiratory Rate 16 16 Blood Pressure 111/73 127/67 Pulse Oximetry 97 95 Intake & Output 10/03/17 10/04/17 10/04/17 18:59 06:59 18:59 Intake Total 100 / 100 1030 / 1030 550 / 550 Balance 100 / 100 1030 / 1030 550 / 550 Weight 106.7 kg Intake: IV 100 / 100 550 / 550 550 / 550 Zosyn 3.375 GM Premix 50 ML @ 100 / 100 100 mls/hr IV.SIG Q6H SARA Rx#: [id number] Vancomycin Inj 1,500 MG In NS 550 / 550 550 / 550 Inj 500 ML @ 250 mls/hr IV.SIG Q12H SARA Rx#:[id number] Oral 480 / 480 Other: # Voids 2 - Routine Skin Exam Present: wounds (There is still drainage and induration around the incision; slightly improved. ) Assessment and Plan - Assessment (1) Abscess of left arm Code(s): L02.414 - Cutaneous abscess of left upper limb Status: Acute - Plan At this point the patient has had what appears to be a significant amount of drainage since the initial incision and drainage of the abscess yesterday in the emergency department. The erythema is resolving slowly. There is still induration. The C&S confirms MRSA; she is on appropriate antibiotic therapy for now. Would recommend checking an u/s of the abscess area to make sure there is no residual abscess which is not being drained.
--- NOTE | 2017-10-04 18:05 | P.PNIM ---
Addendum entered and electronically signed by ALBERTINA Marmolejo 14:36: reviewed sensitivity ENEDINA Will DC Vancomycin and Start Clindamycin US upper extremity resulted and reveals 6.9 x 2.8 x 2.6 cm heterogeneous fluid collection in the left axilla in the region of clinical concern. This is consistent with a subcutaneous abscess Will reconsult general surgery Original Note: Subjective Interval history: Follow up left upper extremity MRSA abscess s/p bedside I&D in ER Patient reports area continues to drain, but not as much as yesterday Physical Exam Vital signs: Vital Signs 10/03/17 20:00 10/04/17 00:00 10/04/17 04:00 Temperature 97.3 F L 97.9 F 97.4 F L Pulse Rate 86 83 90 Respiratory Rate 19 18 18 Blood Pressure 122/66 109/65 112/70 Pulse Oximetry 97 98 98 10/04/17 08:00 10/04/17 12:00 Temperature 97.2 F L 97.1 F L Pulse Rate 83 86 Respiratory Rate 16 16 Blood Pressure 111/73 127/67 Pulse Oximetry 97 95 Intake & Output 10/03/17 10/04/17 10/04/17 18:59 06:59 18:59 Intake Total 100 / 100 1030 / 1030 550 / 550 Balance 100 / 100 1030 / 1030 550 / 550 Weight 106.7 kg Intake: IV 100 / 100 550 / 550 550 / 550 Zosyn 3.375 GM Premix 50 ML @ 100 / 100 100 mls/hr IV.SIG Q6H SARA Rx#: [id number] Vancomycin Inj 1,500 MG In NS 550 / 550 550 / 550 Inj 500 ML @ 250 mls/hr IV.SIG Q12H SARA Rx#:[id number] Oral 480 / 480 Other: # Voids 2 Narrative: GENERAL: This is a well-nourished, well-developed patient, in no apparent distress. SKIN: healing crusted areas bilateral finger tips, medial aspect left upper arm open drain wound with moderate amount of thick purulent drainage, erythema and edema also noted to left upper arm tracking into left axilla CARDIOVASCULAR: Regular rate and rhythm RESPIRATORY: Clear to auscultation. Breath sounds equal bilaterally. GASTROINTESTINAL: Abdomen soft, non-tender, nondistended. Normal active bowel sounds MUSCULOSKELETAL: Extremities without clubbing, cyanosis, or edema. NEURO: Alert & Oriented x4 to person, place, time, situation. Moves all ext x4 Results - Labs CBC & Chem 7: 10/05/17 05:45 10/05/17 05:45 Laboratory Results - last 24 hr 10/04/17 10:40 Sodium 141 Potassium 3.7 Chloride 106 D Carbon Dioxide 27.5 Anion Gap 8 BUN 10 Creatinine 0.99 Estimated GFR 58 L Random Glucose 103 Calcium 7.7 L Microbiology 10/02/17 09:10 Blood - Peripheral Aerobic Blood Culture - Preliminary No growth in 2 days 10/02/17 09:10 Blood - Peripheral Anaerobic Blood Culture - Preliminary No growth in 2 days 10/02/17 09:05 Blood - Peripheral Aerobic Blood Culture - Preliminary No growth in 2 days 10/02/17 09:05 Blood - Peripheral Anaerobic Blood Culture - Preliminary No growth in 2 days 10/02/17 09:00 Abscess - Arm Gram Stain - Final 10/02/17 09:00 Abscess - Arm Wound Culture - Final S. aureus MRSA Assessment and Plan - Assessment (1) Abscess of left arm Code(s): L02.414 - Cutaneous abscess of left upper limb Status: Acute Plan: This is a 57-year-old female patient with a past medical history which includes anxiety, bipolar, fibromyalgia, hyperlipidemia, lupus, obesity and overactive bladder. Patient presents to the emergency department for a draining abscess on her arm. Patient reports that she first noticed a blister on the medial aspect of her upper left arm yesterday during the day then last night the area started draining and saturated her clothes. Patient denies pain to the area. Patient also reports that she removed a hot casserole from her oven about 1 week ago causing burning to bilateral fingers tips. Patient denies fevers, chills, N/V/D/C, SOB or chest pain. Emergency department bedside I&D 10/03/17 Abscess left upper arm Patient presents to the emergency department for a draining abscess on her arm. Patient reports that she first noticed a blister on the medial aspect of her upper left arm yesterday during the day then last night the area started draining and saturated her clothes. (10/02) Emergency department bedside I&D and started patient on vancomycin and Zosyn Blood Cultures no growth x 1 day Wound culture revealed S aureus MRSA sensitivity pending DC Zosyn Continue Vancomycin with pharmacy to dose Consult to General surgery feels no further surgical indication at this time, continues to follow US ordered to further evaluate LUE consult to wound care CBC and BMP in AM Healing manzo bilateral fingers she removed a hot casserole from her oven about 1 week ago causing burning to bilateral fingers tips. continue Silvadene cream BID consult to wound care Hyponatremia on admission patient's Na was 129 --> 136 (10/03) --> 141 (10/04) likely related to poor PO intake resolved after IVFs recheck in AM Hypokalemia potassium on admission 3.0 --> 3.0 --> 3.7 mag 1.8 replace K Anxiety Bipolar Continue patient's home alprazolam as needed, aripiprazole and mirtazapine consult psych Fibromyalgia Lupus continue patient's home gabapentin Hyperlipidemia Continue patient's home fenofibrate and rosuvastatin DVT prophylaxis with SCDs Patient may require HHC or SNF placement at time of DC for assistance in wound care - Attending Attestation Patient examined. Assessment and plan formulated with Irais Pollard PA-C. I agree with the above.
[2017-10-04] MEDS: Temazepam 15 MG Capsule PO SCH (21:09)
[2017-10-05] MEDS: Vancomycin Inj 1,500 MG in Sodium Chlor 0.9% Inj 500 ML IV.SIG SCH ×2 (05:41→06:09)
[2017-10-05] MEDS ORDERED: Pharmacy Ordered Lab Info OTHER ONE (05:45)
[2017-10-05 06:47] LABS: Baso % (Auto) 0.5 % (0.0-2.0); Eos # (Auto) 0.1 th/mm3 (0.0-0.4); Hematocrit 36.9 % (35.0-46.0); Hemoglobin 12.1 gm/dL (11.6-15.3); Lymph # (Auto) 1.5 th/mm3 (1.0-4.8); Lymph % (Auto) 22.7 % (9.0-44.0); Mean Corpuscular HGB Conc 32.8 % (32.0-36.0); Mean Corpuscular Hemoglobin 29.3 pg (27.0-34.0); Mean Corpuscular Volume 89.4 fL (80.0-100.0); Mean Platelet Volume 6.9 fL (7.0-11.0); Mono # (Auto) 0.4 th/mm3 (0.0-0.9); Mono % (Auto) 5.7 % (0.0-8.0); Neut # (Auto) 4.7 th/mm3 (1.8-7.7); Neut % (Auto) 70.1 % (16.0-70.0); Platelet Count 378 th/mm3 (150-450); Red Blood Count 4.13 mil/mm3 (4.00-5.30); Red Cell Distribution Width 14.3 % (11.6-17.2); White Blood Count 6.7 th/mm3 (4.0-11.0)
[2017-10-05 07:09] LABS: Calcium 8.3 mg/dL (8.5-10.1); Carbon Dioxide 26.4 meq/L (21.0-32.0); Potassium 3.7 meq/L (3.5-5.1)
[2017-10-05 07:13] LABS: Vancomycin,Trough 27.8 mcg/mL (5.0-10.0)
[2017-10-05] MEDS: Mirtazapine 15 MG Tablet PO SCH (08:12)
[2017-10-05] MEDS: Fenofibrate 145 MG Tablet PO SCH (08:12)
[2017-10-05] MEDS: Gabapentin 100 MG Capsule PO SCH ×3 (08:13→18:33)
[2017-10-05] MEDS: Hydroxychloroquine 200 MG Tablet PO SCH (08:13)
--- NOTE | 2017-10-05 11:10 | US ---
EXAM DATE: 10/05/2017 11:05 AM EDT AGE/SEX: 57 years / Female INDICATIONS: Left upper arm swelling. CLINICAL DATA: This is the patient's initial encounter. Patient reports that signs and symptoms have been present for 1 day and indicates a pain score of 10/10. MEDICAL/SURGICAL HISTORY: Lupus. Bipolar depression. Shingles. Hyperlipidemia. Cholecystectomy . Tonsillectomy. COMPARISON: No prior exams available for comparison. FINDINGS: There is a 6.9 x 2.8 x 2.6 cm heterogeneously hypoechoic subcutaneous fluid collection in the area of clinical concern in the left axillary region. CONCLUSION: 1. 6.9 x 2.8 x 2.6 cm heterogeneous fluid collection in the left axilla in the region of clinical co ncern. This is consistent with a subcutaneous abscess. Electronically signed by: Brayan Wong MD 10/05/2017 11:09 AM EDT
[2017-10-05] MEDS: Sertraline 100 MG Tablet PO SCH (11:17)
[2017-10-05] MEDS: Clindamycin 900 mg/NS Premix 900 MG/50 ML PIGGYBACK IV.SIG SCH ×2 (11:48→20:28)
--- NOTE | 2017-10-05 14:45 | P.PNIM ---
Subjective Interval history: Patient reports wound continues to drain pain decreasing Physical Exam Vital signs: Vital Signs 10/04/17 16:00 10/04/17 20:00 10/05/17 00:00 Temperature 97.3 F L 97.5 F L 97.8 F Pulse Rate 91 H 90 87 Respiratory Rate 16 18 18 Blood Pressure 117/74 128/69 119/68 Pulse Oximetry 97 99 97 10/05/17 04:00 10/05/17 08:00 10/05/17 12:00 Temperature 97.4 F L 97.9 F 97.6 F Pulse Rate 90 88 86 Respiratory Rate 18 16 17 Blood Pressure 115/67 153/71 H 136/76 Pulse Oximetry 98 98 98 Intake & Output 10/04/17 10/05/17 10/05/17 18:59 06:59 18:59 Intake Total 550 / 550 840 / 840 565 / 565 Balance 550 / 550 840 / 840 565 / 565 Weight 54.7 kg 106.8 kg Intake: IV 550 / 550 600 / 600 565 / 565 Cleocin 900 mg/NS Premix 900 mg 50 / 50 In 50 ml @ 100 mls/hr IV.SIG Q8H SARA Rx#:[id number] Vancomycin Inj 1,500 MG In NS 550 / 550 600 / 600 Inj 500 ML @ 250 mls/hr IV.SIG Q12H SARA Rx#:[id number] Oral 240 / 240 Other: # Voids 2 Date of Last Bowel Movement 10/03/17 Narrative: GENERAL: This is a well-nourished, well-developed patient, in no apparent distress. SKIN: healing crusted areas bilateral finger tips, medial aspect left upper arm open drain wound with moderate amount of thick purulent drainage, erythema and edema also noted to left upper arm tracking into left axilla CARDIOVASCULAR: Regular rate and rhythm RESPIRATORY: Clear to auscultation. Breath sounds equal bilaterally. GASTROINTESTINAL: Abdomen soft, non-tender, nondistended. Normal active bowel sounds MUSCULOSKELETAL: Extremities without clubbing, cyanosis, or edema. NEURO: Alert & Oriented x4 to person, place, time, situation. Moves all ext x4 Results - Labs CBC & Chem 7: 10/05/17 05:45 10/05/17 05:45 Laboratory Results - last 24 hr 10/05/17 10/05/17 05:45 05:45 WBC 6.7 RBC 4.13 Hgb 12.1 Hct 36.9 MCV 89.4 MCH 29.3 MCHC 32.8 RDW 14.3 Plt Count 378 MPV 6.9 L Neut % (Auto) 70.1 H Lymph % (Auto) 22.7 [place] % (Auto) 5.7 Eos % (Auto) 1.0 Baso % (Auto) 0.5 Neut # (Auto) 4.7 Lymph # (Auto) 1.5 [place] # (Auto) 0.4 Eos # (Auto) 0.1 Baso # (Auto) 0.0 WBC Differential . Differential Comment Auto diff final Sodium 143 Potassium 3.7 Chloride 106 Carbon Dioxide 26.4 Anion Gap 11 BUN 11 Creatinine 1.17 H Estimated GFR 48 L Random Glucose 87 Calcium 8.3 L Vancomycin Trough 27.8 H Microbiology 10/02/17 09:10 Blood - Peripheral Aerobic Blood Culture - Preliminary No growth in 3 days 10/02/17 09:10 Blood - Peripheral Anaerobic Blood Culture - Preliminary No growth in 3 days 10/02/17 09:05 Blood - Peripheral Aerobic Blood Culture - Preliminary No growth in 3 days 10/02/17 09:05 Blood - Peripheral Anaerobic Blood Culture - Preliminary No growth in 3 days - Imaging Impressions Upper Extremity Ultrasound 10/05/17 00:00 CONCLUSION: 1. 6.9 x 2.8 x 2.6 cm heterogeneous fluid collection in the left axilla in the region of clinical concern. This is consistent with a subcutaneous abscess. Assessment and Plan - Assessment (1) Abscess of left arm Code(s): L02.414 - Cutaneous abscess of left upper limb Status: Acute Plan: This is a 57-year-old female patient with a past medical history which includes anxiety, bipolar, fibromyalgia, hyperlipidemia, lupus, obesity and overactive bladder. Patient presents to the emergency department for a draining abscess on her arm. Patient reports that she first noticed a blister on the medial aspect of her upper left arm yesterday during the day then last night the area started draining and saturated her clothes. Patient denies pain to the area. Patient also reports that she removed a hot casserole from her oven about 1 week ago causing burning to bilateral fingers tips. Patient denies fevers, chills, N/V/D/C, SOB or chest pain. Emergency department bedside I&D 10/03/17 Abscess left upper arm Patient presents to the emergency department for a draining abscess on her arm. Patient reports that she first noticed a blister on the medial aspect of her upper left arm yesterday during the day then last night the area started draining and saturated her clothes. (10/02) Emergency department bedside I&D and started patient on vancomycin and Zosyn Blood Cultures no growth x 1 day Wound culture revealed S aureus MRSA sensitivity pending DC Zosyn Continue Vancomycin with pharmacy to dose Consult to General surgery feels no further surgical indication at this time, continues to follow US ordered to further evaluate LUE consult to wound care reviewed culture and sensitivity ENEDINA Will DC Vancomycin and Start Clindamycin US upper extremity resulted and reveals 6.9 x 2.8 x 2.6 cm heterogeneous fluid collection in the left axilla in the region of clinical concern. This is consistent with a subcutaneous abscess Will reconsult general surgery Healing manzo bilateral fingers she removed a hot casserole from her oven about 1 week ago causing burning to bilateral fingers tips. continue Silvadene cream BID consult to wound care Hyponatremia on admission patient's Na was 129 --> 136 (10/03) --> 141 (10/04) likely related to poor PO intake resolved after IVFs recheck in AM Hypokalemia potassium on admission 3.0 --> 3.0 --> 3.7 mag 1.8 replace K Anxiety Bipolar Continue patient's home alprazolam as needed, Zoloft, aripiprazole and mirtazapine consult psych Fibromyalgia Lupus continue patient's home gabapentin Hyperlipidemia Continue patient's home fenofibrate and rosuvastatin DVT prophylaxis with SCDs
[2017-10-05] MEDS ORDERED: fentaNYL Citrate Inj 250 MCG/5 ML Ampul ONE (15:57)
--- NOTE | 2017-10-05 16:24 | P.PNWCN ---
Wound Care Nurse Consult Description: Consulted for bilateral fingers and left upper arm per Latrice. Communicated with: Patient Recommendation: Continue current treatment of Silvadene as ordered to manzo. Defer to General Surgery Dr Rodriguez for arm. Additional information: Patient seen on for healing manzo to bilateral fingers. Manzo noted to fingers are dry, scabbed and healing.
[2017-10-05] MEDS ORDERED: Lidocaine PF 1% Inj 10 ML Amp ONE (16:59)
--- NOTE | 2017-10-05 17:05 | US ---
EXAM DATE: 10/05/2017 4:57 PM EDT AGE/SEX: 57 years / Female INDICATIONS: Abscess drainage. CLINICAL DATA: This is the patient's initial encounter. Patient reports that signs and symptoms have been present for 1 day and indicates a pain score of 7/10. MEDICAL/SURGICAL HISTORY: . Bipolar disorder. Shingles. Hyperlipidemia. Lupus. Cholecystectomy . Tonsillectomy. COMPARISON: No prior exams available for comparison. FLUID: Total volume of 1 cc of cloudy, red fluid was removed. Fluid was sent to lab for ordered studies. Post procedure scanning reveals no hematoma or other complication. TECHNIQUE: Ultrasound guidance for abscess drainage. Abscess drainage. . . The risks, benefits and alternatives to the procedure were explained and verbal and written consent w as obtained. The site was prepped in sterile fashion. Full sterile technique was used, including ca p, mask, sterile gloves and gown and a large sterile sheet. Hand hygiene and 2% chlorhexidine and/or betadine/alcohol prep was utilized per protocol for cutaneous antisepsis. The skin and subcutaneous tissues were infiltrated with local anesthetic solution. Sterile gel and sterile probe cover were u tilized for ultrasound guidance. With the patient on the ultrasound table, ultrasound imaging was used to select the most appropriate approach for drainage. A dermatotomy was made with an 11 blade scalpel. A catheter was introduced i nto the cavity and fluid was collected. A 10 [place] catheter was placed though no drainage was retu rned. Ultrasound was used to confirm the position of the catheter within the collection. The separate incision in the left upper arm was cleaned with Betadine and iodoform gauze was placed within the co llection. The patient tolerated the procedure well and the left the ultrasound suite in stable condition. CONCLUSION: 1. Uncomplicated abscess drainage. Electronically signed by: Cuco Bridges MD 10/05/2017 5:03 PM EDT
[2017-10-05] MEDS: Temazepam 15 MG Capsule PO SCH (20:28)
[2017-10-06] MEDS: Clindamycin 900 mg/NS Premix 900 MG/50 ML PIGGYBACK IV.SIG SCH ×3 (05:07→20:22)
[2017-10-06 07:28] LABS: INR 1.1 Ratio; Prothrombin Time 10.9 sec (9.8-11.6)
[2017-10-06] MEDS: Fenofibrate 145 MG Tablet PO SCH (08:42)
[2017-10-06] MEDS: Mirtazapine 15 MG Tablet PO SCH (08:43)
[2017-10-06] MEDS: Sertraline 100 MG Tablet PO SCH (08:43)
[2017-10-06] MEDS: Gabapentin 100 MG Capsule PO SCH ×3 (08:43→17:09)
[2017-10-06] MEDS: Hydroxychloroquine 200 MG Tablet PO SCH (08:44)
--- NOTE | 2017-10-06 13:08 | P.PNIM ---
Subjective Interval history: Follow up MRSA abscess left upper arm and axilla patient reports pain with dressing changes and c/o drainage on sheets Physical Exam Vital signs: Vital Signs 10/05/17 15:37 10/05/17 16:30 10/05/17 17:05 Temperature 98.2 F Pulse Rate 88 85 Respiratory Rate 18 20 3 L Blood Pressure 129/85 131/87 Pulse Oximetry 98 96 10/05/17 18:00 10/05/17 20:00 10/06/17 00:00 Temperature 97.6 F 97.8 F 97.7 F Pulse Rate 81 95 H 97 H Respiratory Rate 17 18 18 Blood Pressure 144/71 H 150/75 H 132/68 Pulse Oximetry 95 98 98 10/06/17 04:00 10/06/17 08:00 Temperature 97.7 F 97.4 F L Pulse Rate 96 H 89 Respiratory Rate 18 18 Blood Pressure 136/74 142/85 H Pulse Oximetry 97 97 Intake & Output 10/05/17 10/06/17 10/06/17 18:59 06:59 18:59 Intake Total 1525 / 1525 580 / 580 Balance 1525 / 1525 580 / 580 Weight 106.8 kg 108.5 kg Intake: IV 565 / 565 100 / 100 Cleocin 900 mg/NS Premix 900 mg 50 / 50 100 / 100 In 50 ml @ 100 mls/hr IV.SIG Q8H SARA Rx#:[id number] Oral 960 / 960 480 / 480 Other: # Voids 5 1 Date of Last Bowel Movement 10/05/17 10/05/17 # Bowel Movements 1 0 Narrative: GENERAL: This is a well-nourished, well-developed patient, in no apparent distress. SKIN: healing crusted areas bilateral finger tips, left upper arm open drain wound with copious amount of thick purulent drainage , erythema and edema also noted to left upper arm tracking into left axilla drain to lateral left chest/axilla CARDIOVASCULAR: Regular rate and rhythm RESPIRATORY: Clear to auscultation. Breath sounds equal bilaterally. GASTROINTESTINAL: Abdomen soft, non-tender, nondistended. Normal active bowel sounds NEURO: Alert & Oriented x4 to person, place, time, situation. Moves all ext x4 Results - Labs CBC & Chem 7: 10/05/17 05:45 10/05/17 05:45 Laboratory Results - last 24 hr 10/06/17 06:32 PT 10.9 INR 1.1 Microbiology 10/05/17 16:05 Fluid - Other Gram Stain - Final 10/02/17 09:10 Blood - Peripheral Aerobic Blood Culture - Preliminary No growth in 4 days 10/02/17 09:10 Blood - Peripheral Anaerobic Blood Culture - Preliminary No growth in 4 days 10/02/17 09:05 Blood - Peripheral Aerobic Blood Culture - Preliminary No growth in 4 days 10/02/17 09:05 Blood - Peripheral Anaerobic Blood Culture - Preliminary No growth in 4 days - Imaging Impressions Abscess Drainage Ultrasound 10/05/17 15:48 CONCLUSION: 1. Uncomplicated abscess drainage. Assessment and Plan - Assessment (1) Abscess of left arm Code(s): L02.414 - Cutaneous abscess of left upper limb Status: Acute Plan: This is a 57-year-old female patient with a past medical history which includes anxiety, bipolar, fibromyalgia, hyperlipidemia, lupus, obesity and overactive bladder. Patient presents to the emergency department for a draining abscess on her arm. Patient reports that she first noticed a blister on the medial aspect of her upper left arm yesterday during the day then last night the area started draining and saturated her clothes. Patient denies pain to the area. Patient also reports that she removed a hot casserole from her oven about 1 week ago causing burning to bilateral fingers tips. Patient denies fevers, chills, N/V/D/C, SOB or chest pain. Emergency department bedside I&D 10/03/17 Abscess left upper arm Patient presents to the emergency department for a draining abscess on her arm. Patient reports that she first noticed a blister on the medial aspect of her upper left arm yesterday during the day then last night the area started draining and saturated her clothes. (10/02) Emergency department bedside I&D and started patient on vancomycin and Zosyn Blood Cultures no growth x 1 day Wound culture revealed S aureus MRSA sensitivity pending DC Zosyn Continue Vancomycin with pharmacy to dose Consult to General surgery feels no further surgical indication at this time, continues to follow US ordered to further evaluate LUE reviewed and revealed: 6.9 x 2.8 x 2.6 cm heterogeneous fluid collection in the left axilla in the region of clinical concern. This is consistent with a subcutaneous abscess. Dr. Sequeira discussed with Dr. Rodriguez (10/05) recommended IR consultation Consult placed to IR s/p abscess drainage by IR with drain placed consult to wound care Morphine added for use as needed prior to dressing changes daily dressing changes with iodoform packing Healing manzo bilateral fingers she removed a hot casserole from her oven about 1 week ago causing burning to bilateral fingers tips. continue Silvadene cream BID consult to wound care Hyponatremia on admission patient's Na was 129 --> 136 (10/03) --> 141 (10/04) likely related to poor PO intake resolved after IVFs recheck in AM Hypokalemia potassium on admission 3.0 --> 3.0 --> 3.7 mag 1.8 replace K Anxiety Bipolar Continue patient's home alprazolam as needed, aripiprazole and mirtazapine consult psych Fibromyalgia Lupus continue patient's home gabapentin Hyperlipidemia Continue patient's home fenofibrate and rosuvastatin DVT prophylaxis with SCDs Patient may require HHC or SNF placement at time of DC for assistance in wound care - Attending Attestation Patient examined. Assessment and plan formulated with Irais Pollard PA-C. I agree with the above.
[2017-10-06] MEDS: Morphine Sulfate Inj 2 MG/ML Vial IV.PUSH PRN (14:29)
[2017-10-06] MEDS: Temazepam 15 MG Capsule PO SCH (20:21)
[2017-10-07] MEDS: Clindamycin 900 mg/NS Premix 900 MG/50 ML PIGGYBACK IV.SIG SCH ×3 (05:22→19:12)
[2017-10-07] MEDS: Fenofibrate 145 MG Tablet PO SCH (09:49)
[2017-10-07] MEDS: Sertraline 100 MG Tablet PO SCH (09:49)
[2017-10-07] MEDS: Hydroxychloroquine 200 MG Tablet PO SCH (09:49)
[2017-10-07] MEDS: Gabapentin 100 MG Capsule PO SCH ×3 (09:49→18:58)
[2017-10-07] MEDS: Mirtazapine 15 MG Tablet PO SCH (09:51)
[2017-10-07] MEDS: Morphine Sulfate Inj 2 MG/ML Vial IV.PUSH PRN (11:44)
--- NOTE | 2017-10-07 12:04 | P.PNIM ---
Subjective Interval history: pt says better day today than yesterday Physical Exam Vital signs: Vital Signs 10/06/17 16:00 10/06/17 20:00 10/07/17 00:00 Temperature 97.9 F 97.7 F 98.5 F Pulse Rate 89 92 H 89 Respiratory Rate 17 18 18 Blood Pressure 144/80 H 139/71 115/72 Pulse Oximetry 96 99 97 10/07/17 04:00 10/07/17 08:00 Temperature 97.8 F 98.9 F Pulse Rate 87 94 H Respiratory Rate 18 18 Blood Pressure 115/59 L 116/58 L Pulse Oximetry 95 97 Intake & Output 10/06/17 10/07/17 10/07/17 18:59 06:59 18:59 Intake Total 650 / 650 880 / 880 Output Total 0 / 0 Balance 650 / 650 880 / 880 Weight 108.1 kg Intake: IV 50 / 50 100 / 100 Cleocin 900 mg/NS Premix 900 mg 50 / 50 100 / 100 In 50 ml @ 100 mls/hr IV.SIG Q8H SARA Rx#:[id number] Oral 600 / 600 780 / 780 Output: Wound Vac Amount 0 / 0 Left Axilla 0 / 0 Other: # Voids 4 2 Date of Last Bowel Movement 10/06/17 # Bowel Movements 1 left axillary drain.not draining. open wound..packing with purelent material removed. more pus expressed but less than yesterday...induration noted extending onto back...when pressed can express some pus. Results - Labs CBC & Chem 7: 10/05/17 05:45 10/05/17 05:45 Microbiology 10/05/17 16:05 Fluid - Other Gram Stain - Final 10/05/17 16:05 Fluid - Other Body Fluid Culture - Preliminary No growth in 48 hours 10/02/17 09:10 Blood - Peripheral Aerobic Blood Culture - Final No growth in 5 days 10/02/17 09:10 Blood - Peripheral Anaerobic Blood Culture - Final No growth in 5 days 10/02/17 09:05 Blood - Peripheral Aerobic Blood Culture - Final No growth in 5 days 10/02/17 09:05 Blood - Peripheral Anaerobic Blood Culture - Final No growth in 5 days Assessment and Plan - Assessment (1) Abscess of left arm Code(s): L02.414 - Cutaneous abscess of left upper limb Status: Acute Plan: This is a 57-year-old female patient with a past medical history which includes anxiety, bipolar, fibromyalgia, hyperlipidemia, lupus, obesity and overactive bladder. Patient presents to the emergency department for a draining abscess on her arm. Patient reports that she first noticed a blister on the medial aspect of her upper left arm yesterday during the day then last night the area started draining and saturated her clothes. Patient denies pain to the area. Patient also reports that she removed a hot casserole from her oven about 1 week ago causing burning to bilateral fingers tips. Patient denies fevers, chills, N/V/D/C, SOB or chest pain. Emergency department bedside I&D 10/03/17 Abscess left upper arm Patient presents to the emergency department for a draining abscess on her arm. Patient reports that she first noticed a blister on the medial aspect of her upper left arm yesterday during the day then last night the area started draining and saturated her clothes. (10/02) Emergency department bedside I&D and started patient on vancomycin and Zosyn Blood Cultures no growth Wound culture revealed S aureus MRSA sensitivity pending DC Zosyn Consult to General surgery feels no further surgical indication at this time, continues to follow US ordered to further evaluate LUE reviewed and revealed: 6.9 x 2.8 x 2.6 cm heterogeneous fluid collection in the left axilla in the region of clinical concern. This is consistent with a subcutaneous abscess. Dr. Sequeira discussed with Dr. Rodriguez (10/05) recommended IR consultation Consult placed to IR s/p abscess drainage by IR with drain placed consult to wound care Morphine added for use as needed prior to dressing changes daily dressing changes with iodoform packing I removed packing and nursing will repack and dress after giving her some morphine. continue clindamycin iv Healing manzo bilateral fingers she removed a hot casserole from her oven about 1 week ago causing burning to bilateral fingers tips. continue Silvadene cream BID consult to wound care Hyponatremia on admission patient's Na was 129 --> 136 (10/03) --> 141 (10/04) likely related to poor PO intake resolved after IVFs Hypokalemia potassium on admission 3.0 --> 3.0 --> 3.7 mag 1.8 replace K Anxiety Bipolar Continue patient's home alprazolam as needed, aripiprazole and mirtazapine consult psych Fibromyalgia Lupus continue patient's home gabapentin Hyperlipidemia Continue patient's home fenofibrate and rosuvastatin DVT prophylaxis with SCDs Patient may require HHC or SNF placement at time of DC for assistance in wound care
[2017-10-07] MEDS: Temazepam 15 MG Capsule PO SCH (21:41)
[2017-10-08] MEDS: Clindamycin 900 mg/NS Premix 900 MG/50 ML PIGGYBACK IV.SIG SCH ×3 (03:48→20:56)
[2017-10-08] MEDS: Fenofibrate 145 MG Tablet PO SCH (09:16)
[2017-10-08] MEDS: Mirtazapine 15 MG Tablet PO SCH (09:16)
[2017-10-08] MEDS: Sertraline 100 MG Tablet PO SCH (09:16)
[2017-10-08] MEDS: Gabapentin 100 MG Capsule PO SCH ×3 (09:16→18:47)
[2017-10-08] MEDS: Hydroxychloroquine 200 MG Tablet PO SCH (09:16)
[2017-10-08] MEDS: Morphine Sulfate Inj 2 MG/ML Vial IV.PUSH PRN (09:18)
--- NOTE | 2017-10-08 14:34 | P.PNIM ---
Subjective Interval history: no acute distress. Physical Exam Vital signs: Vital Signs 10/07/17 18:00 10/07/17 20:00 10/08/17 00:00 Temperature 98.1 F 97.8 F 97.8 F Pulse Rate 92 H 94 H 95 H Respiratory Rate 18 Blood Pressure 118/70 132/79 145/75 H Pulse Oximetry 100 98 97 10/08/17 04:00 10/08/17 08:00 10/08/17 12:00 Temperature 97.6 F 97.6 F 97.4 F L Pulse Rate 90 91 H 85 Respiratory Rate Blood Pressure 126/60 158/78 H 116/58 L Pulse Oximetry 97 95 94 L Intake & Output 10/07/17 10/08/17 10/08/17 18:59 06:59 18:59 Intake Total 430 / 430 220 / 220 Output Total 1999 Balance -1570 / -1570 220 / 220 Weight 107.1 kg Intake: IV 50 / 50 100 / 100 Cleocin 900 mg/NS Premix 900 mg 50 / 50 100 / 100 In 50 ml @ 100 mls/hr IV.SIG Q8H SARA Rx#:[id number] Oral 380 / 380 120 / 120 Output: Urine 1999 Other: # Voids 3 Date of Last Bowel Movement 10/08/17 # Bowel Movements 0 1 heart reg lung cta left axilla open wound..packed. gauze removed. purelent material less able to push minimal pus from the wound. still some induration between the opening and drainsite. redness that extended onto her back is better. Results - Labs CBC & Chem 7: 10/05/17 05:45 10/05/17 05:45 Microbiology 10/05/17 16:05 Fluid - Other Gram Stain - Final 10/05/17 16:05 Fluid - Other Body Fluid Culture - Final No growth in 72 hours (aerobically and anaerobically ) 10/02/17 09:10 Blood - Peripheral Aerobic Blood Culture - Final No growth in 5 days 10/02/17 09:10 Blood - Peripheral Anaerobic Blood Culture - Final No growth in 5 days 10/02/17 09:05 Blood - Peripheral Aerobic Blood Culture - Final No growth in 5 days 10/02/17 09:05 Blood - Peripheral Anaerobic Blood Culture - Final No growth in 5 days Assessment and Plan - Assessment (1) Abscess of left arm Code(s): L02.414 - Cutaneous abscess of left upper limb Status: Acute Plan: This is a 57-year-old female patient with a past medical history which includes anxiety, bipolar, fibromyalgia, hyperlipidemia, lupus, obesity and overactive bladder. Patient presents to the emergency department for a draining abscess on her arm. Patient reports that she first noticed a blister on the medial aspect of her upper left arm yesterday during the day then last night the area started draining and saturated her clothes. Patient denies pain to the area. Patient also reports that she removed a hot casserole from her oven about 1 week ago causing burning to bilateral fingers tips. Patient denies fevers, chills, N/V/D/C, SOB or chest pain. Emergency department bedside I&D 10/03/17 Abscess left upper arm Patient presents to the emergency department for a draining abscess on her arm. Patient reports that she first noticed a blister on the medial aspect of her upper left arm yesterday during the day then last night the area started draining and saturated her clothes. (10/02) Emergency department bedside I&D and started patient on vancomycin and Zosyn Blood Cultures no growth x 1 day Wound culture revealed S aureus MRSA DC Zosyn Continue Vancomycin with pharmacy to dose Consult to General surgery feels no further surgical indication at this time, continues to follow US ordered to further evaluate LUE reviewed and revealed: 6.9 x 2.8 x 2.6 cm heterogeneous fluid collection in the left axilla in the region of clinical concern. This is consistent with a subcutaneous abscess. Dr. Sequeira discussed with Dr. Rodriguez (10/05) recommended IR consultation Consult placed to IR s/p abscess drainage by IR with drain placed consult to wound care Morphine added for use as needed prior to dressing changes daily dressing changes with iodoform packing cont current abx. Healing manzo bilateral fingers she removed a hot casserole from her oven about 1 week ago causing burning to bilateral fingers tips. continue Silvadene cream BID consult to wound care Hyponatremia on admission patient's Na was 129 --> 136 (10/03) --> 141 (10/04) likely related to poor PO intake Hypokalemia potassium on admission 3.0 --> 3.0 --> 3.7 mag 1.8 Anxiety Bipolar Continue patient's home alprazolam as needed, aripiprazole and mirtazapine consult psych Fibromyalgia Lupus continue patient's home gabapentin Hyperlipidemia Continue patient's home fenofibrate and rosuvastatin DVT prophylaxis with SCDs Patient may require HHC or SNF placement at time of DC for assistance in wound care
[2017-10-08] MEDS: Temazepam 15 MG Capsule PO SCH (20:57)
[2017-10-09] MEDS: Clindamycin 900 mg/NS Premix 900 MG/50 ML PIGGYBACK IV.SIG SCH ×3 (05:15→20:06)
[2017-10-09] MEDS: Fenofibrate 145 MG Tablet PO SCH (09:23)
[2017-10-09] MEDS: Gabapentin 100 MG Capsule PO SCH ×3 (09:25→17:33)
[2017-10-09] MEDS: Mirtazapine 15 MG Tablet PO SCH (09:25)
[2017-10-09] MEDS: Hydroxychloroquine 200 MG Tablet PO SCH (09:25)
[2017-10-09] MEDS: Sertraline 100 MG Tablet PO SCH (09:25)
--- NOTE | 2017-10-09 10:15 | P.PNIM ---
Subjective Interval history: no new events Physical Exam Vital signs: Vital Signs 10/08/17 12:00 10/08/17 16:00 10/08/17 20:00 Temperature 97.4 F L 98.5 F 98.3 F Pulse Rate 85 93 H 92 H Respiratory Rate 20 16 18 Blood Pressure 116/58 L 127/60 128/74 Pulse Oximetry 94 L 96 96 10/08/17 23:50 10/09/17 04:00 Temperature 98 F 97.5 F L Pulse Rate 90 90 Respiratory Rate 18 18 Blood Pressure 144/68 H 113/67 Pulse Oximetry 97 97 Intake & Output 10/08/17 10/09/17 10/09/17 18:59 06:59 18:59 Intake Total 650 / 650 340 / 340 Output Total 800 / 800 Balance -150 / -150 339 / 339 Weight 106.3 kg Intake: IV 50 / 50 100 / 100 Cleocin 900 mg/NS Premix 900 mg 50 / 50 100 / 100 In 50 ml @ 100 mls/hr IV.SIG Q8H SARA Rx#:[id number] Oral 600 / 600 240 / 240 Output: Urine 800 / 800 Urine/Stool Mix Other: # Voids 3 # Bowel Movements 1 heart reg lung cta abd s/nt ext left axilla packed. some induration catheter removed. back swelling/erythema improved. Results - Labs CBC & Chem 7: 10/05/17 05:45 10/05/17 05:45 Microbiology 10/05/17 16:05 Fluid - Other Gram Stain - Final 10/05/17 16:05 Fluid - Other Body Fluid Culture - Final No growth in 72 hours (aerobically and anaerobically ) Assessment and Plan - Assessment (1) Abscess of left arm Code(s): L02.414 - Cutaneous abscess of left upper limb Status: Acute Plan: This is a 57-year-old female patient with a past medical history which includes anxiety, bipolar, fibromyalgia, hyperlipidemia, lupus, obesity and overactive bladder. Patient presents to the emergency department for a draining abscess on her arm. Patient reports that she first noticed a blister on the medial aspect of her upper left arm yesterday during the day then last night the area started draining and saturated her clothes. Patient denies pain to the area. Patient also reports that she removed a hot casserole from her oven about 1 week ago causing burning to bilateral fingers tips. Patient denies fevers, chills, N/V/D/C, SOB or chest pain. Emergency department bedside I&D 10/03/17 Abscess left upper arm Patient presents to the emergency department for a draining abscess on her arm. Patient reports that she first noticed a blister on the medial aspect of her upper left arm yesterday during the day then last night the area started draining and saturated her clothes. (10/02) Emergency department bedside I&D and started patient on vancomycin and Zosyn Blood Cultures no growth x 1 day Wound culture revealed S aureus MRSA DC Zosyn Continue Vancomycin with pharmacy to dose Consult to General surgery feels no further surgical indication at this time, continues to follow US ordered to further evaluate LUE reviewed and revealed: 6.9 x 2.8 x 2.6 cm heterogeneous fluid collection in the left axilla in the region of clinical concern. This is consistent with a subcutaneous abscess. Dr. Sequeira discussed with Dr. Rodriguez (10/05) recommended IR consultation IR placed drain. no effect. removed 10/08 Morphine added for use as needed prior to dressing changes daily dressing changes with iodoform packing cont current abx. pt may need snf for medical management on dc. Healing manzo bilateral fingers she removed a hot casserole from her oven about 1 week ago causing burning to bilateral fingers tips. continue Silvadene cream BID consult to wound care Hyponatremia on admission patient's Na was 129 --> 136 (10/03) --> 141 (10/04) likely related to poor PO intake Hypokalemia potassium on admission 3.0 --> 3.0 --> 3.7 mag 1.8 Anxiety Bipolar Continue patient's home alprazolam as needed, aripiprazole and mirtazapine consult psych Fibromyalgia Lupus continue patient's home gabapentin Hyperlipidemia Continue patient's home fenofibrate and rosuvastatin DVT prophylaxis with SCDs Patient may require HHC or SNF placement at time of DC for assistance in wound care
[2017-10-09] MEDS: Morphine Sulfate Inj 2 MG/ML Vial IV.PUSH PRN (16:46)
[2017-10-09] MEDS: Temazepam 15 MG Capsule PO SCH (20:07)
[2017-10-10] MEDS: Clindamycin 900 mg/NS Premix 900 MG/50 ML PIGGYBACK IV.SIG SCH ×3 (05:37→20:41)
[2017-10-10] MEDS: Sertraline 100 MG Tablet PO SCH (09:06)
[2017-10-10] MEDS: Hydroxychloroquine 200 MG Tablet PO SCH (09:06)
[2017-10-10] MEDS: Mirtazapine 15 MG Tablet PO SCH (09:07)
[2017-10-10] MEDS: Gabapentin 100 MG Capsule PO SCH ×3 (09:07→17:39)
[2017-10-10] MEDS: Fenofibrate 145 MG Tablet PO SCH (09:07)
--- NOTE | 2017-10-10 09:37 | P.PNIM ---
Subjective Interval history: ambulating. no new complaints Physical Exam Vital signs: Vital Signs 10/09/17 12:00 10/09/17 20:00 10/10/17 00:00 Temperature 97.6 F 97.7 F 97.1 F L Pulse Rate 88 104 H 92 H Respiratory Rate 18 18 16 Blood Pressure 129/78 136/78 118/66 Pulse Oximetry 95 95 97 10/10/17 04:00 10/10/17 08:00 Temperature 97.8 F 97.8 F Pulse Rate 83 87 Respiratory Rate 18 18 Blood Pressure 115/68 136/67 Pulse Oximetry 97 95 Intake & Output 10/09/17 10/10/17 10/10/17 18:59 06:59 18:59 Intake Total 1250 / 1250 100 / 100 Balance 1250 / 1250 100 / 100 Weight 104.4 kg Intake: IV 50 / 50 100 / 100 Cleocin 900 mg/NS Premix 900 mg 50 / 50 100 / 100 In 50 ml @ 100 mls/hr IV.SIG Q8H SARA Rx#:[id number] Oral 1200 / 1200 Other: # Voids 4 2 # Bowel Movements 2 heart reg lung cta abd s/nt ext left axilla open wound packed. surrounding erythema essentially resolved. inferiorly the exit hole from now removed drain. the area between the old drain hole and the open abscess wound still with induration. Results - Labs CBC & Chem 7: 10/05/17 05:45 10/05/17 05:45 Assessment and Plan - Assessment (1) Abscess of left arm Code(s): L02.414 - Cutaneous abscess of left upper limb Status: Acute Plan: This is a 57-year-old female patient with a past medical history which includes anxiety, bipolar, fibromyalgia, hyperlipidemia, lupus, obesity and overactive bladder. Patient presents to the emergency department for a draining abscess on her arm. Patient reports that she first noticed a blister on the medial aspect of her upper left arm yesterday during the day then last night the area started draining and saturated her clothes. Patient denies pain to the area. Patient also reports that she removed a hot casserole from her oven about 1 week ago causing burning to bilateral fingers tips. Patient denies fevers, chills, N/V/D/C, SOB or chest pain. Emergency department bedside I&D 10/03/17 Abscess left upper arm Patient presents to the emergency department for a draining abscess on her arm. Patient reports that she first noticed a blister on the medial aspect of her upper left arm yesterday during the day then last night the area started draining and saturated her clothes. (10/02) Emergency department bedside I&D and started patient on vancomycin and Zosyn Blood Cultures no growth x 1 day Wound culture revealed S aureus MRSA initially on zosyn/vanco converted to iv clindamycin Consult to General surgery feels no further surgical indication at this time, continues to follow US ordered to further evaluate LUE reviewed and revealed: 6.9 x 2.8 x 2.6 cm heterogeneous fluid collection in the left axilla in the region of clinical concern. This is consistent with a subcutaneous abscess. Dr. Sequeira discussed with Dr. Rodriguez (10/05) recommended IR consultation IR placed drain. no effect. removed 10/08 Morphine added for use as needed prior to dressing changes daily dressing changes with iodoform packing cont current abx. pt may need snf for medical management on dc. will plan for repeat u/s of soft tissue as there is still alot of tenderness and induration inferiorly to the main open wound defect...If there continues to be any sign of abscess then notify surgery. Healing manzo bilateral fingers she removed a hot casserole from her oven about 1 week ago causing burning to bilateral fingers tips. can stop silvadene consult to wound care Hyponatremia on admission patient's Na was 129 --> 136 (10/03) --> 141 (10/04) likely related to poor PO intake Hypokalemia potassium on admission 3.0 --> 3.0 --> 3.7 mag 1.8 Anxiety Bipolar Continue patient's home alprazolam as needed, aripiprazole and mirtazapine consult psych Fibromyalgia Lupus continue patient's home gabapentin Hyperlipidemia Continue patient's home fenofibrate and rosuvastatin DVT prophylaxis with SCDs Patient may require HHC or SNF placement at time of DC for assistance in wound care
[2017-10-10] MEDS: Morphine Sulfate Inj 2 MG/ML Vial IV.PUSH PRN (16:18)
[2017-10-10] MEDS: Temazepam 15 MG Capsule PO SCH (20:42)
[2017-10-11] MEDS: Clindamycin 900 mg/NS Premix 900 MG/50 ML PIGGYBACK IV.SIG SCH ×3 (03:22→20:54)
--- NOTE | 2017-10-11 09:05 | P.PNIM ---
Subjective Interval history: no distress. no new events overnight. Physical Exam Vital signs: Vital Signs 10/10/17 12:00 10/10/17 16:00 10/10/17 20:00 Temperature 97.8 F 98.1 F 98.8 F Pulse Rate 88 89 87 Respiratory Rate 18 18 18 Blood Pressure 131/79 133/61 139/62 Pulse Oximetry 97 97 96 10/10/17 23:28 10/11/17 04:00 Temperature 97.6 F 98.1 F Pulse Rate 85 84 Respiratory Rate 16 18 Blood Pressure 118/61 124/61 Pulse Oximetry 96 96 Intake & Output 10/10/17 10/11/17 10/11/17 18:59 06:59 18:59 Intake Total 530 / 530 100 / 100 Balance 530 / 530 100 / 100 Weight 103.3 kg Intake: IV 50 / 50 100 / 100 Cleocin 900 mg/NS Premix 900 mg 50 / 50 100 / 100 In 50 ml @ 100 mls/hr IV.SIG Q8H SARA Rx#:[id number] Oral 480 / 480 Other: # Voids 5 3 Date of Last Bowel Movement 10/10/17 # Bowel Movements 1 1 nad heart reg lung cta abd s/nt ext left axillary abscess pocket packed still some induration/fluctuance in area between absces pocket opening and old drain site opening. skin erythema much improved and essentially resolved. Results - Labs CBC & Chem 7: 10/05/17 05:45 10/05/17 05:45 Assessment and Plan - Assessment (1) Abscess of left arm Code(s): L02.414 - Cutaneous abscess of left upper limb Status: Acute Plan: This is a 57-year-old female patient with a past medical history which includes anxiety, bipolar, fibromyalgia, hyperlipidemia, lupus, obesity and overactive bladder. Patient presents to the emergency department for a draining abscess on her arm. Patient reports that she first noticed a blister on the medial aspect of her upper left arm yesterday during the day then last night the area started draining and saturated her clothes. Patient denies pain to the area. Patient also reports that she removed a hot casserole from her oven about 1 week ago causing burning to bilateral fingers tips. Patient denies fevers, chills, N/V/D/C, SOB or chest pain. Emergency department bedside I&D 10/03/17 Abscess left upper arm Patient presents to the emergency department for a draining abscess on her arm. Patient reports that she first noticed a blister on the medial aspect of her upper left arm yesterday during the day then last night the area started draining and saturated her clothes. (10/02) Emergency department bedside I&D and started patient on vancomycin and Zosyn Blood Cultures no growth x 1 day Wound culture revealed S aureus MRSA initially on zosyn/vanco converted to iv clindamycin Consult to General surgery feels no further surgical indication at this time, continues to follow US ordered to further evaluate LUE reviewed and revealed: 6.9 x 2.8 x 2.6 cm heterogeneous fluid collection in the left axilla in the region of clinical concern. This is consistent with a subcutaneous abscess. Dr. Sequeira discussed with Dr. Rodriguez (10/05) recommended IR consultation IR placed drain. no effect. removed 10/08 Morphine added for use as needed prior to dressing changes daily dressing changes with iodoform packing cont current abx. pt may need snf for medical management on dc. Pt says her sister questions the need for snf. I called her sister at pt request at bedside. The phone was on speaker. Patient requested that I leave a detailed message on her sisters voicemail as she was not answering. will plan for repeat u/s of soft tissue as there is still alot of tenderness and induration/some fluctuance between abscess pocket opening and old drain exit site..If there continues to be any sign of abscess after a week of drainage and failed IR drain attempts.... then notify surgery again before discharging. Healing manzo bilateral fingers she removed a hot casserole from her oven about 1 week ago causing burning to bilateral fingers tips. can stop silvadene consult to wound care Hyponatremia on admission patient's Na was 129 --> 136 (10/03) --> 141 (10/04) likely related to poor PO intake Hypokalemia potassium on admission 3.0 --> 3.0 --> 3.7 mag 1.8 Anxiety Bipolar Continue patient's home alprazolam as needed, aripiprazole and mirtazapine consult psych Fibromyalgia Lupus continue patient's home gabapentin Hyperlipidemia Continue patient's home fenofibrate and rosuvastatin DVT prophylaxis with SCDs
[2017-10-11] MEDS: Sertraline 100 MG Tablet PO SCH (09:17)
[2017-10-11] MEDS: Gabapentin 100 MG Capsule PO SCH ×3 (09:17→17:42)
[2017-10-11] MEDS: Fenofibrate 145 MG Tablet PO SCH (09:17)
[2017-10-11] MEDS: Hydroxychloroquine 200 MG Tablet PO SCH (09:18)
[2017-10-11] MEDS: Mirtazapine 15 MG Tablet PO SCH (09:18)
[2017-10-11] MEDS: Morphine Sulfate Inj 2 MG/ML Vial IV.PUSH PRN (10:52)
--- NOTE | 2017-10-11 10:52 | US ---
EXAM DATE: 10/11/2017 10:44 AM EDT AGE/SEX: 57 years / Female INDICATIONS: Left upper extremity abscess. CLINICAL DATA: This is the patient's subsequent encounter. Patient reports that signs and symptoms h ave been present for 1 week and indicates a pain score of 9/10. MEDICAL/SURGICAL HISTORY: Shingles. Lupus. Hyperlipidemia. Cholecystectomy. Tonsillectomy. COMPARISON: [facility] [place], ARM SOFT TISSUE LEFT, 10/05/2017. . FINDINGS: There is now a draining fistula in the previous region of abscess in the left upper extremity/axillar y region. Very small residual subcutaneous collection measuring less than 1 cm (6 x 10 x 4 mm) just a nterior and cephalad to the site of previous abscess with tract to this region. No additional fluid c ollections. CONCLUSION: 1. Near interval resolution of left upper extremity/axillary abscess secondary to draining cutaneous fistula. Small subcentimeter subcutaneous collection just anterior and cephalad to the previous fist yamileth with apparent tract to this region. Electronically signed by: Brayan Wong MD 10/11/2017 10:50 AM EDT
[2017-10-11] MEDS: Temazepam 15 MG Capsule PO SCH (20:55)
[2017-10-12] MEDS: Clindamycin 900 mg/NS Premix 900 MG/50 ML PIGGYBACK IV.SIG SCH (04:28)
[2017-10-12] MEDS: Hydroxychloroquine 200 MG Tablet PO SCH (09:36)
[2017-10-12] MEDS: Fenofibrate 145 MG Tablet PO SCH (09:37)
[2017-10-12] MEDS: Sertraline 100 MG Tablet PO SCH (09:37)
[2017-10-12] MEDS: Mirtazapine 15 MG Tablet PO SCH (09:38)
[2017-10-12] MEDS: Gabapentin 100 MG Capsule PO SCH ×3 (09:38→17:39)
--- NOTE | 2017-10-12 11:57 | P.PNIM ---
Subjective Interval history: Pt has NO new clinical complaints. Pt/family requested second surgical opinion. Physical Exam Vital signs: 10/12/17 00:00 10/12/17 04:00 10/12/17 08:00 Temperature 98.2 F 97.8 F Pulse Rate 82 83 Respiratory Rate 18 18 Blood Pressure 117/56 L 110/67 Pulse Oximetry 95 95 94 L Narrative: GENERAL: This is a well-nourished, well-developed patient, in no apparent distress. SKIN: healing crusted areas bilateral finger tips, left upper arm open drain wound with drainage, erythema and edema also noted to left upper arm --> improved from admission. CARDIOVASCULAR: Regular rate and rhythm RESPIRATORY: Clear to auscultation. Breath sounds equal bilaterally. GASTROINTESTINAL: Abdomen soft, non-tender, nondistended. Normal active bowel sounds NEURO: Alert & Oriented x4 to person, place, time, situation. Moves all ext x4 Results - Labs CBC & Chem 7: 10/05/17 05:45 10/05/17 05:45 - Imaging Chest X-Ray 10/02/17 00:00 CONCLUSION: Mild basilar atelectasis. No effusion or pneumothorax. Upper Extremity Ultrasound 10/05/17 00:00 CONCLUSION: 1. 6.9 x 2.8 x 2.6 cm heterogeneous fluid collection in the left axilla in the region of clinical concern. This is consistent with a subcutaneous abscess. Abscess Drainage Ultrasound 10/05/17 15:48 CONCLUSION: 1. Uncomplicated abscess drainage. Upper Extremity Ultrasound 10/11/17 06:00 CONCLUSION: 1. Near interval resolution of left upper extremity/axillary abscess secondary to draining cutaneous fistula. Small subcentimeter subcutaneous collection just anterior and cephalad to the previous fistula with apparent tract to this region. Assessment and Plan - Assessment (1) Abscess of left arm Code(s): L02.414 - Cutaneous abscess of left upper limb Status: Acute Plan: This is a 57-year-old female patient with a past medical history which includes anxiety, bipolar, fibromyalgia, hyperlipidemia, lupus, obesity and overactive bladder. Patient presents to the emergency department for a draining abscess on her arm. Patient reports that she first noticed a blister on the medial aspect of her upper left arm yesterday during the day then last night the area started draining and saturated her clothes. Patient denies pain to the area. Patient also reports that she removed a hot casserole from her oven about 1 week ago causing burning to bilateral fingers tips. Patient denies fevers, chills, N/V/D/C, SOB or chest pain. Emergency department bedside I&D 10/03/17 Abscess left upper arm Patient presents to the emergency department for a draining abscess on her arm. Patient reports that she first noticed a blister on the medial aspect of her upper left arm yesterday during the day then last night the area started draining and saturated her clothes. (10/02) Emergency department bedside I&D and started patient on vancomycin and Zosyn Blood Cultures no growth x 1 day Wound culture revealed S aureus MRSA initially on zosyn/vanco (10/03 - 10/05/17) - converted to iv clindamycin (10/05 - resent), change to PO - Appreciate input from General Surgery, Dr. Rodriguez. - IR placed drain. no effect. removed 10/08 - Pt/family requested second surgical opinion - Pt seen by Plastic Surgeon, Dr. Blair Leon. - Dr. Leon concurs that pt does NOT require surgical procedure at this time. - continue conservative mgmt. - daily dressing changes with iodoform packing - Case d/w pt/sister, Cathy Sheppard. Pt has underlying biopolar disorder & h/o IV drug use. Pt recently fell off the [facility]. - Pt's home is NOT hygenic. Family is considering hiring professional cleaning service that provides HAZMAT service to clean premises. - PT at high risk of readmission - Case d/w [facility] Case Mgmt and they will approve [facility] - SCDs for DVT prophylaxis - supportive care - anticipate discharge to SNF 10/13/17 Healing manzo bilateral fingers she removed a hot casserole from her oven about 1 week ago causing burning to bilateral fingers tips. can stop silvadene consult to wound care Hyponatremia on admission patient's Na was 129 --> 136 (10/03) --> 141 (10/04) likely related to poor PO intake Hypokalemia potassium on admission 3.0 --> 3.0 --> 3.7 mag 1.8 Anxiety Bipolar Continue patient's home alprazolam as needed, aripiprazole and mirtazapine consult psych Fibromyalgia Lupus continue patient's home gabapentin Hyperlipidemia Continue patient's home fenofibrate and rosuvastatin DVT prophylaxis with SCDs
--- NOTE | 2017-10-12 16:23 | MB ---
cc: Blair Leon MD DATE: 10/11/2017 REASON FOR CONSULTATION: Left arm abscess with open wound. HISTORY OF PRESENT ILLNESS: This is a 57-year-old white female, who has been admitted to [facility] under the medical service for approximately 10 days now. She has been attended to by both medical team and also general surgery. She came in on 10/02/2017 with a history of an open draining abscess on the posterior aspect of her left upper arm, just into the axilla, said it happened overnight. She had noticed a pain similar to her previous experience with this pain many years back in the same general area. She does not recall any particular distress or any insect bites, or any kind of trauma surrounding the area. Does not remember scratching the area. She eventually had a culture positive for MRSA from that wound. She has been placed on IV antibiotic and has been doing well overall. She also had a second attempt at draining abscess by radiological ultrasound-guided needle aspiration and approximately 1 mL of pus was recovered from that aspiration. The location of this particular abscess pocket is not clear from the operative report, and the patient is unable to point to the area; however, she does have a second area of dressing and a small puncture wound more on the fatty bra roll/scapular area, rather than the axilla. The patient states that she is getting better and feeling better compared to her admission. She is not diabetic, but she is moderately obese. She lives alone with a couple of cats, does not have any immediate family. The patient's medical history includes lupus, fibromyalgia, and hyperlipidemia. She also has anxiety and bipolar psychiatric problems. She does not have any heart problems. No high blood pressure. Again, she is not diabetic. She does not have any chronic lymphadenopathy or acute skin rashes. The previous surgical history is positive only for endometrial biopsy. SOCIAL HISTORY: Positive for previous smoking, not currently smoking. She denies any alcohol or drug abuse. ALLERGIES: NOT ALLERGIC TO ANY MEDICATIONS. CURRENT ACTIVE MEDICATIONS: Listed include vancomycin and Restoril in the hospital. HOME MEDICATIONS: Include: 1. Lidoderm. 2. Xanax. 3. Aripiprazole. 4. Aspirin. 5. Vitamin D3. 6. Cyclobenzaprine. 7. Diclofenac. 8. Fenofibrate. 9. Lasix. 10. Gabapentin. 11. Hydroxychloroquine. 12. Mirtazapine. 13. Rosuvastatin. 14. Temazepam. 15. Tramadol. 16. Valtrex. 17. Sertraline. PHYSICAL EXAMINATION: Shows a 57-year-old white female resting in the hospital bed. She is able to move around easily. Vitals are stable. She is not febrile. She is fully alert and able to communicate well. The general examination is as per the admission records. She is again moderately obese. On local examination of the 2 areas, the patient points to the left axilla posterior aspect and also on the left upper lateral back over the scapula. There is one dressing in place on the scapular area. This was removed and had a small scabbed area of what appears to be a small puncture access. No acute cellulitis noted. No pustular abscess noted. The area is soft to touch and is not tender anymore. The second area, which is the original abscess that she came in with, is under the left posterior axillary fold, more obvious when the arm is raised. It is approximately 1.5 cm linear opening, approximately 4-5 mm wide, and it seems to be about 1 cm deep. The surrounding tissues are indurated, but no longer red or hot and the redness is limited mostly to the area surrounding the opening itself. There may be additional dermal thickness to the skin, possibly because of her lupus problem as well. The surrounding firmness extends about 2-2.5 inches mostly in the posterior superior direction. The axilla itself is soft. I could not elicit any gross drainage from the open wound. There is no packing or any dressing on this one. No smell. The rest of the skin surrounding the area shows a desquamation of the epithelium indicating probably a good recovery from the inflammation process underway. ASSESSMENT AND PLAN: The patient had requested my consultation as a second opinion. Currently, she does not need any surgical intervention. The IV antibiotic that has been on for 10 days should be adequate. If she is already recovering, she can be placed on oral antibiotics. The wound itself needs to be maintained open as long as possible to allow the healing from inside. The second area can be on the scapula location can be left open without any dressing, it is already closed. I can see the patient for a followup for in the [facility]. She can also continue to see Dr. Rodriguez for the wound care. signed, not fully reviewed Blair Leon MD VJM/dewayne/sean , 02:27 PM , 02:49 PM DONA
[2017-10-12] MEDS: Temazepam 15 MG Capsule PO SCH (20:57)
[2017-10-13] MEDS: Mirtazapine 15 MG Tablet PO SCH (08:26)
[2017-10-13] MEDS: Hydroxychloroquine 200 MG Tablet PO SCH (08:26)
[2017-10-13] MEDS: Fenofibrate 145 MG Tablet PO SCH (08:26)
[2017-10-13] MEDS: Sertraline 100 MG Tablet PO SCH (08:26)
[2017-10-13] MEDS: Gabapentin 100 MG Capsule PO SCH ×2 (08:26→12:46)
--- NOTE | 2017-10-13 12:50 | P.DS ---
Date of admission: 10/05/17 15:51 Primary care physician: Shazia Elkins MD Attending physician on discharge: Giovany Betts Anticipated date of discharge: 10/13/17 Brief History from admission: This is a 57-year-old female patient with a past medical history which includes anxiety, bipolar, fibromyalgia, hyperlipidemia, lupus, obesity and overactive bladder. Patient presents to the emergency department for a draining abscess on her arm. Patient reports that she first noticed a blister on the medial aspect of her upper left arm yesterday during the day then last night the area started draining and saturated her clothes. Patient denies pain to the area. Patient also reports that she removed a hot casserole from her oven about 1 week ago causing burning to bilateral fingers tips. Patient denies fevers, chills, N/V/D/C, SOB or chest pain. Emergency department today bedside I&D and started patient on vancomycin and Zosyn. Cultures obtained and pending. past medical history anxiety, benign hypertension, bipolar, fibromyalgia, hyperlipidemia, lupus, obesity and overactive bladder Past surgical history Endometrial biopsy Social history Denies ETOH, tobacco use or illicit drug use Family history reviewed and noncontributory DS: Diagnosis - Discharge Diagnosis (1) Abscess of left arm Status: Acute DS: Medications - Discharge Medications Prescriptions: alprazolam [Xanax] 0.5 mg PO Q12H PRN #60 tab PRN Reason: Anxiety temazepam 30 mg PO HS PRN #30 tab PRN Reason: Insomnia tramadol [Ultram] 50 mg PO Q8HR PRN #30 tab PRN Reason: pain 1-10. DS: Summary Hospital Course: (1) Abscess of left arm Code(s): L02.414 - Cutaneous abscess of left upper limb Status: Acute Plan: This is a 57-year-old female patient with a past medical history which includes anxiety, bipolar, fibromyalgia, hyperlipidemia, lupus, obesity and overactive bladder. Patient presents to the emergency department for a draining abscess on her arm. Patient reports that she first noticed a blister on the medial aspect of her upper left arm yesterday during the day then last night the area started draining and saturated her clothes. Patient denies pain to the area. Patient also reports that she removed a hot casserole from her oven about 1 week ago causing burning to bilateral fingers tips. Patient denies fevers, chills, N/V/D/C, SOB or chest pain. Emergency department bedside I&D 10/03/17 Abscess left upper arm Patient presents to the emergency department for a draining abscess on her arm. Patient reports that she first noticed a blister on the medial aspect of her upper left arm yesterday during the day then last night the area started draining and saturated her clothes. (10/02) Emergency department bedside I&D and started patient on vancomycin and Zosyn Blood Cultures no growth x 1 day Wound culture revealed S aureus MRSA initially on zosyn/vanco (10/03 - 10/05/17) - converted to iv clindamycin (10/05 - resent), change to PO x 10days - Appreciate input from General Surgery, Dr. Rodriguez. - IR placed drain. no effect. removed 10/08 - Pt/family requested second surgical opinion - Pt seen by Plastic Surgeon, Dr. Blair Leon. - Dr. Leon concurs that pt does NOT require surgical procedure at this time. - continue conservative mgmt. - daily dressing changes with iodoform packing - Case d/w pt/sister, Cathy Sheppard. Pt has underlying biopolar disorder & h/o IV drug use. Pt recently fell off the [facility]. - Pt's home is NOT hygenic. Family is considering hiring professional cleaning service that provides HAZMAT service to clean premises. - PT at high risk of readmission - discharge to SNF 10/13/17 - f/u with Dr. Altaf Rodriguez in 1 week - f/u with PCP, Dr. Shazia Elkins, 1 week after diacharge from SNF Healing manzo bilateral fingers she removed a hot casserole from her oven about 1 week ago causing burning to bilateral fingers tips. can stop silvadene consult to wound care Hyponatremia on admission patient's Na was 129 --> 136 (10/03) --> 141 (10/04) likely related to poor PO intake Hypokalemia potassium on admission 3.0 --> 3.0 --> 3.7 mag 1.8 Anxiety Bipolar Continue patient's home alprazolam as needed, aripiprazole and mirtazapine consult psych Fibromyalgia Lupus continue patient's home gabapentin Hyperlipidemia Continue patient's home fenofibrate and rosuvastatin - Time Spent with Patient Total time spent providing and/or coordinating discharge services: Greater than 30 minutes - Quality: VTE Deep Vein Thrombosis/Pulmonary Embolism Present on Admission: No Exam Vital signs: 10/13/17 04:00 10/13/17 08:00 Temperature 97.6 F 97.9 F Pulse Rate 85 81 Respiratory Rate 18 19 Blood Pressure 134/78 139/67 Pulse Oximetry 96 95 Narrative: GENERAL: This is a well-nourished, well-developed patient, in no apparent distress. CARDIOVASCULAR: Regular rate and rhythm without murmurs, gallops, or rubs. RESPIRATORY: Clear to auscultation. Breath sounds equal bilaterally. No wheezes , rales, or rhonchi. GASTROINTESTINAL: Abdomen soft, non-tender, nondistended. Normal active bowel sounds MUSCULOSKELETAL: Extremities without clubbing, cyanosis, or edema. NEURO: Alert & Oriented x4 to person, place, time, situation. Moves all ext x4 skin: bandage at left axilla Results Procedures completed during hospitalization: I&D of left axillary abscess by ER physician Placement of abscess drainage catheter by IR - Impressions ITS Impressions Chest X-Ray 10/02/17 00:00 CONCLUSION: Mild basilar atelectasis. No effusion or pneumothorax. Abscess Drainage Ultrasound 10/05/17 15:48 CONCLUSION: 1. Uncomplicated abscess drainage. Upper Extremity Ultrasound 10/11/17 06:00 CONCLUSION: 1. Near interval resolution of left upper extremity/axillary abscess secondary to draining cutaneous fistula. Small subcentimeter subcutaneous collection just anterior and cephalad to the previous fistula with apparent tract to this region. Discharge Plan - Discharge Disposition Patient Disposition: 03 Discharge to SNF - Discharge Condition Condition: Stable - Discharge Order Discharge Orders: Discharge Order (Routine); Ordered 10/13/17 Ordered By: Giovany Betts - Discharge Details Anticipated Discharge Date: 10/13/17 - Physicians Team Primary Care Provider: Shazia Elkins Attending Provider: Giovany Betts Other Providers: Altaf Rodriguez MD ; Jerald Del Rio MD ; [facility] ; Blair Leon MD ; [facility] [place] [facility]
== END 2017-10-13 15:24 ==
LOC: NEDA 08:46 → NEPE 08:46 → NEDA 17:04 → N04 17:16
PROVIDERS: ADMIT Hospitalist; ATTEND Hospitalist